=== PATIENT | female | born 1950 | race Caucasian/White ===

== ENCOUNTER 2016-10-13 12:03 | Emergency (ER) | payer OTHER ==
[~2016-10-13] VITALS: Ht 172.7 cm; Wt 115.1 kg
[~2016-10-13 12:03] MED LIST: AMR2 PO; ASPI81TA21 PO; GABA-113 PO; GLCSR500 PO; IBUP600T44 PO; LSN/20125 PO; MULT-506 PO; PARO20TA PO; cranberry supplement PO
[2016-10-13 12:16] VITALS: TEMP 36.9; Ht 172.7 cm; Wt 115.1 kg
[2016-10-13] MEDS ORDERED: CHOL1TAB42 PO (12:27)
[2016-10-13] MEDS ORDERED: METF1TAB53 PO (12:27)
[2016-10-13] MEDS ORDERED: [UNRECOGNIZED DRUG - OTHER] PO (12:27)
[2016-10-13] MEDS ORDERED: GLIM4TAB2 PO (12:27)
[2016-10-13] MEDS ORDERED: PREG150C PO (12:27)
[2016-10-13] MEDS ORDERED: OXYCODONE HCL IR 5 MG TAB (IMMEDIATE RELEASE) PO STA (12:45)
[2016-10-13] MEDS ORDERED: AMPICILLIN/SULBACTAM SOD INJ 3,000 MG in SODIUM CHLORIDE 0.9% 100ML 100 ML IV STA (12:45)
[2016-10-13 13:35] LABS: BASO % 0.3 %; BASO ABS # 0.04 K/uL (0-0.2); COMPLETE YES; EOS % 0.4 %; HEMATOCRIT 43.1 % (37-47); IG% 0.3 %; LYMPH % 15.9 %; LYMPH ABS # 1.95 K/uL (1.2-3.4); MEAN CELL VOLUME 87.1 fL (80-100); MEAN CORPUSCULAR HEMOGLOBIN 29.9 pg (25-34); MEAN CORPUSCULAR HGB CONC 34.3 g/dl (32-36); MEAN PLATELET VOLUME 10.1 fL (7.4-10.4); MONO % 5.7 %; NEUT % 77.4 %; PLATELET COUNT 221 K/uL (130-400); RED BLOOD COUNT 4.95 M/uL (4.2-5.4); WHITE BLOOD COUNT 12.26 K/uL (4.8-10.8)
[2016-10-13 13:56] LABS: BUN/CREATININE RATIO 17.1 (10-20); CALCIUM 9.2 mg/dl (8.5-10.1); CREATININE 0.87 mg/dl (0.60-1.20); POTASSIUM 3.8 mmol/L (3.5-5.1)
--- NOTE | 2016-10-13 14:28 | EMERGENCY ROOM VISIT NOTE ---
History First contact with patient: 12:35 Chief Complaint: DENTAL PAIN Stated Complaint: TOOTH ABSCESS, PAIN/SWELLING Nursing Triage Summary: Red and swollen left cheek. She relates that she broke a tooth off on Wednesday. She relates pain in the face. History of Present Illness The patient is a 66 year old female who presents to the Emergency Room via private vehicle accompanied by son with complaints of "tooth abscess, pain/ swelling". Patient states that she's had trouble with her upper dentition for the past 2 weeks. She states that she has a plate on the top that was unable to fit correctly and then the tissue became irritated. She states over the weekend she was eating supper and a piece of her right front tooth broke off. Since then she's been experiencing worsening pain and swelling on the right side of her face with redness from the right lip to the right eye. She rates the pain as an 8/10. She denies any pain with eye movement. She denies any kidney problems, fevers, chills, allergies, trouble swallowing. Review of Systems A complete 6-point Review of Systems was discussed with the patient, with pertinent positives and negatives listed in the History of Present Illness. All remaining Review of Systems questions can be considered negative unless otherwise specified. Past Medical/Surgical History No pertinent past medical history. Social History Smoking Status: Never Smoker Alcohol Use: none Drug Use: none Marital Status: Occupation Status: employed Current/Historical Medications Scheduled Amoxicillin & Pot Clavulanate (Augmentin 875-125 mg), 1 TAB PO BID Artificial Saliva (Biotene Dry Mouth Gum), 1 TAB PO DAILY Aspirin Enteric Coated (Ecotrin Or Generic), 81 MG PO DAILY Cholecalciferol (Vitamin D), 10,000 UNITS PO DAILY Glimepiride (Glimepiride), 4 MG PO DAILY Hctz/Lisinopril (PRINZIDE 20/12.5 Mg), 1 TAB PO DAILY Metformin Hcl (Glucophage Ext Rel), 1,000 MG PO BID Multivitamin (Multivitamin), 1 TAB PO DAILY Pregabalin (Lyrica), 150 MG PO BID [cranberry supplement], 1 TABS PO BID Scheduled PRN Oxycodone Ir (Roxicodone Ir), 1-2 TAB PO Q4H PRN for Pain Allergies Coded Allergies: NUTS (Verified Allergy, Unknown, ., 10/13/16) Physical Exam Vital Signs Date Time Temp Pulse Resp B/P Pulse Ox O2 Delivery O2 Flow Rate FiO2 10/13/16 16:53 102 18 125/79 93 Room Air 10/13/16 14:59 81 20 135/80 91 Room Air 10/13/16 12:16 36.9 97 18 141/87 93 Room Air Physical Exam VITAL SIGNS - Vital signs and nursing notes were reviewed. Patient is afebrile , blood pressure 141/87, non-tachycardic and is saturating on room air at 93%. She was noted to be this low on a previous visit in 2012 for similar complaint. GENERAL -66-year-old female appearing her stated age who is in no acute distress. Communicates well with provider and answers questions appropriately. SKIN - there is erythema extending from the right upper lip to the right eye. There is edema of this region. There is periorbital edema and erythema. No pain with EOMs. There is tenderness palpation just to the right of the right nostril. HEAD - NC/AT. EYES - PERRL with EOMI bilaterally. Sclera anicteric. Palpebral conjunctiva pink and moist with no injection noted. EARS - No deformities of external structures noted on gross examination bilaterally. No pain elicited with palpation of the tragus bilaterally. External auditory canals without discharge or otorrhea. Tympanic membranes pearly laguna without retraction or bulging. No fluid or purulent material visualized behind the TM. Handle of malleus, umbo, cone of light, pars tensa/ flaccid all easily visualized. NOSE - Midline and without cyanosis. No epistaxis or purulent drainage noted. MOUTH/OROPHARYNX - Without perioral cyanosis. Buccal mucosa pink and moist and without leukoplakia. Tongue midline with equal elevation of palate bilaterally. No tonsillar hypertrophy, erythema, or exudates noted. Poor dentition noted. There is evidence of a fractured tooth in the right front portion of the upper dentition. Multiple missing teeth. NECK - Neck with FROM. Supple to palpation. No lymphadenopathy noted. No nuchal rigidity. No signs of Tony angina. LUNGS - Chest wall symmetric without accessory muscle use, intercostals retractions, or central cyanosis. Normal vesicular breath sounds CTA B/L. No wheezes, rales, or rhonchi appreciated. CARDIAC - RRR with S1/S2. No murmur, rubs, or gallops appreciated. Medical Decision & Procedures ER Provider Diagnostic Interpretation: MAXILLOFACIAL CT WITH CONTRAST CLINICAL HISTORY: Right facial edema, erythema from mouth to right eye. TECHNIQUE: Axial images of the face were obtained following intravenous injection of 119 cc Optiray 320 IV. Sagittal and coronal reconstructions were viewed. COMPARISON STUDY: Neck CT December 24, 2011. FINDINGS: Visualized portions of the intracranial contents are unremarkable. The epiglottis is normal. Parotid and submandibular glands are normal. There is moderate plaque within the major vessels of the upper neck and skull base. These vessels are patent. No suspicious osseous lesion is present. There are multiple dental amalgams with streak artifact. There are multiple absent teeth as well as cavities. Note is made of a rim-enhancing 1.7 x 1.5 x 0.8 cm fluid collection overlying the right anterior aspect of the maxilla. This is due to a periapical abscess of a right maxillary tooth shown on axial image 298 of 610. Exact numbering is difficult given numerous absent teeth. This is either the lateral right maxillary incisor or less likely the canine. No additional abscesses are identified. There is adjacent infiltration consistent with cellulitis. There is mild right preseptal cellulitis as well. IMPRESSION: 1.7 x 1.5 x 0.8 cm abscess overlying the right anterior aspect of the maxilla with associated cellulitis. This represents an odontogenic abscess related to a periapical abscess of a anterior right maxillary tooth. Exact numbering is difficult given absent teeth although this is likely related to the lateral right maxillary incisor or less likely the canine. Electronically signed by: Rogelio Ayoub M.D. 10/13/2016 2:46 PM Dictated Date/Time: 10/13/2016 2:38 PM Laboratory Results 10/13/16 13:05 Red Blood Count 4.95, Mean Corpuscular Volume 87.1, Mean Corpuscular Hemoglobin 29.9, Mean Corpuscular Hemoglobin Concent 34.3, Mean Platelet Volume 10.1, Neutrophils (%) (Auto) 77.4, Lymphocytes (%) (Auto) 15.9, Monocytes (%) (Auto) 5.7, Eosinophils (%) (Auto) 0.4, Basophils (%) (Auto) 0.3, Neutrophils # (Auto) 9.48, Lymphocytes # (Auto) 1.95, Monocytes # (Auto) 0.70, Eosinophils # (Auto) 0.05, Basophils # (Auto) 0.04 10/13/16 13:05 Test 10/13/16 13:05 White Blood Count 12.26 K/uL (4.8-10.8) Red Blood Count 4.95 M/uL (4.2-5.4) Hemoglobin 14.8 g/dL (12.0-16.0) Hematocrit 43.1 % (37-47) Mean Corpuscular Volume 87.1 fL (80-100) Mean Corpuscular Hemoglobin 29.9 pg (25-34) Mean Corpuscular Hemoglobin Concent 34.3 g/dl (32-36) Platelet Count 221 K/uL (130-400) Mean Platelet Volume 10.1 fL (7.4-10.4) Neutrophils (%) (Auto) 77.4 % Lymphocytes (%) (Auto) 15.9 % Monocytes (%) (Auto) 5.7 % Eosinophils (%) (Auto) 0.4 % Basophils (%) (Auto) 0.3 % Neutrophils # (Auto) 9.48 K/uL (1.4-6.5) Lymphocytes # (Auto) 1.95 K/uL (1.2-3.4) Monocytes # (Auto) 0.70 K/uL (0.11-0.59) Eosinophils # (Auto) 0.05 K/uL (0-0.5) Basophils # (Auto) 0.04 K/uL (0-0.2) RDW Standard Deviation 44.1 fL (36.4-46.3) RDW Coefficient of Variation 13.7 % (11.5-14.5) Immature Granulocyte % (Auto) 0.3 % Immature Granulocyte # (Auto) 0.04 K/uL (0.00-0.02) Anion Gap 8.0 mmol/L (3-11) Est Creatinine Clear Calc Drug Dose 87.0 ml/min Estimated GFR () 81.6 Estimated GFR (Non- 70.4 BUN/Creatinine Ratio 17.1 (10-20) Calcium Level 9.2 mg/dl (8.5-10.1) Medications Administered Medications (Trade) Dose Ordered Sig/Hebert Route Start Time Stop Time Status Last Admin Dose Admin Ampicillin Sodium/ Sulbactam Sodium/ Sodium Chloride (Unasyn Inj/Nss 100ml) 108 ml @ 200 mls/hr NOW STAT IV 10/13/16 12:45 10/13/16 13:17 DC 10/13/16 13:13 200 MLS/HR Oxycodone HCl (Roxicodone Immediate Rel Tab) 5 mg NOW STAT PO 10/13/16 12:45 10/13/16 12:48 DC 10/13/16 12:45 5 MG Lidocaine HCl (Buffered Lidocaine 1% Inj) 20 ml ONE STAT INFIL 10/13/16 15:23 10/13/16 15:25 DC 10/13/16 15:23 20 ML Dexamethasone Sodium Phosphate (Decadron Inj) 10 mg NOW STAT IV 10/13/16 15:24 10/13/16 15:25 DC 10/13/16 15:45 10 MG Medical Decision Patient was seen and evaluated as above. After obtaining a thorough history and physical examination IV access was obtained and a CBC, PRP, 3 g of Unasyn and one 5 mg tablet of oxycodone were given secondary to subjective and objective examination findings. CT of the face with IV contrast was also obtained secondary to facial swelling and concern for swelling around the eye. No pain with EOMs. There is concern for preseptal cellulitis and facial abscess secondary to poor dentition. CT results as above. There is an abscess. Case was discussed with my attending and it was decided to call the on -call oral maxillary facial surgeon. Case was discussed with Dr. Garg by my attending. He agreed to come in and evaluate the patient and drained the abscess. 1% buffered lidocaine was ordered and a suture setup was also ordered. I was instructed to provide the patient with 10 mg of Decadron as per instruction from Dr. Garg relayed to my attending. I do believe this is reasonable. Dr. Garg then came and drained the abscess with good result. She was placed upon Augmentin 875 mg 1 tab by mouth daily for 10 days. She is to call his office first thing tomorrow to schedule follow-up. She was given a short term supply of pain medication and instructed upon use. She was educated upon worrisome symptoms in which to return. She was informed upon the plaque findings in the neck vasculature and had vasculature. She was given a copy of her CT report and instructed to follow-up with her family doctor regarding these findings. She was educated upon today's findings, had questions answered prior to discharge, and was discharged home in good condition. I do believe the patient is stable for discharge and can be managed in the outpatient setting with close follow-up with Dr. Garg. She is to return with any new/ concerning symptoms or worsening of her symptoms. CBC revealed slight leukocytosis of 12.26. CMP revealed random glucose of 222. Patient is a known diabetic. In evaluation treatment this patient following differential diagnoses were entertained: Facial abscess, cellulitis, para will cellulitis, preseptal cellulitis, among others. [place] Drug Monitoring Program Search Results: patient reviewed within database, no issues identified Impression Primary Impression: Cellulitis and abscess of face Additional Impression: Preseptal cellulitis of right eye Departure Information Dispostion Home / Self-Care Condition GOOD Prescriptions Oxycodone Ir (Roxicodone Ir) 5 Mg Tab 1-2 TAB PO Q4H Y for Pain, #15 TAB For Initial Treatment Prov: Tony Albarran PA-C 10/13/16 Amoxicillin & Pot Clavulanate (Augmentin 875-125 mg) 1 Tab Tab 1 TAB PO BID for 10 Days, #20 TAB Prov: Tony Albarran PA-C 10/13/16 Referrals Carol Ayoub M.D. (PCP) Markos Garg DMD, MD, FACS Patient Instructions My [facility] Additional Instructions You have been treated in the Emergency Department for Dental Pain. You have received pain medicine in the emergency department which impairs your ability to operate a vehicle. It is illegal for you to drive after receiving these medicines. You have been prescribed Oxy IR to be used for pain control. This is a narcotic medication. You cannot drive or consume alcohol while on this medicine. This medicine should only be used for pain that cannot be controlled with over-the- counter pain medicines. You were prescribed Augmentin to be taken Twice daily. This is an antibiotic. All antibiotics have the potential to cause diarrhea. Stop this medication and contact a medical provider if you were to develop any significant adverse side effects including: wheezing, shortness of breath, passing out, vomiting, or a diffuse rash. Always take antibiotics as directed and COMPLETE the ENTIRE course regardless of the improvement of your symptoms. For pain control, you can use the following [id number] medicines (if >12 yo): - Regular strength (325mg/tab) Tylenol (acetaminophen) 2 tabs every 4-6 hours as needed. Do not exceed 12 tablets in a 24 hour period. Avoid taking more than 4 grams (4000 mg) of Tylenol per day. This includes any other sources of acetaminophen you may take on a regular basis. - Regular strength (200 mg/tab) Advil (ibuprofen) 1-2 tabs every 4-6 hours as needed. Do not exceed a dose of 3200 mg per day. Refrain from smoking cigarettes or using chewing tobacco until you have been evaluated by your dentist. Keeping beverages lukewarm and consuming soft foods can decrease your pain. Warm compresses over the affected area may offer some relief. Please call Dr. Garg's office first thing tomorrow morning to schedule follow- up regarding your emergency department visit. Please call your family doctor regarding today's visit. For the plaque that was noted in the major vessels of the neck and skull base. Please return to the emergency department with any new/concerning symptoms. Return to the emergency department if you develop the following symptoms despite treatment course outlined above: fever, intractable pain, increased redness, swelling, or purulent discharge. Problem Qualifiers
--- NOTE | 2016-10-13 14:48 | DIAGNOSTIC IMAGING REPORT ---
MAXILLOFACIAL CT WITH CONTRAST CLINICAL HISTORY: Right facial edema, erythema from mouth to right eye. TECHNIQUE: Axial images of the face were obtained following intravenous injection of 119 cc Optiray 320 IV. Sagittal and coronal reconstructions were viewed. COMPARISON STUDY: Neck CT December 24, 2011. FINDINGS: Visualized portions of the intracranial contents are unremarkable. The epiglottis is normal. Parotid and submandibular glands are normal. There is moderate plaque within the major vessels of the upper neck and skull base. These vessels are patent. No suspicious osseous lesion is present. There are multiple dental amalgams with streak artifact. There are multiple absent teeth as well as cavities. Note is made of a rim-enhancing 1.7 x 1.5 x 0.8 cm fluid collection overlying the right anterior aspect of the maxilla. This is due to a periapical abscess of a right maxillary tooth shown on axial image 298 of 610. Exact numbering is difficult given numerous absent teeth. This is either the lateral right maxillary incisor or less likely the canine. No additional abscesses are identified. There is adjacent infiltration consistent with cellulitis. There is mild right preseptal cellulitis as well. IMPRESSION: 1.7 x 1.5 x 0.8 cm abscess overlying the right anterior aspect of the maxilla with associated cellulitis. This represents an odontogenic abscess related to a periapical abscess of a anterior right maxillary tooth. Exact numbering is difficult given absent teeth although this is likely related to the lateral right maxillary incisor or less likely the canine. Electronically signed by: Rogelio Ayoub M.D. 10/13/2016 2:46 PM Dictated Date/Time: 10/13/2016 2:38 PM
[2016-10-13] MEDS ORDERED: XYLOCAINE 1%/SOD BICARB 20 ML VIAL INFIL STA (15:23)
[2016-10-13] MEDS ORDERED: DEXAMETHASONE SOD INJ 10 MG/ML VIAL IV STA (15:24)
[2016-10-13] MEDS ORDERED: AMOX875T PO (16:41)
[2016-10-13] MEDS ORDERED: OXYC1TAB3 PO (16:42)
[2016-10-13 16:53] VITALS: BP 125/79; PULSE 102; O2SAT 93
--- NOTE | 2016-10-14 20:39 | EMERGENCY ROOM VISIT NOTE ---
ED Visit Note First contact with patient: 12:35 I have personally seen and evaluated the patient with the PA. I agree with the diagnosis and management decisions and have been personally involved in the case. She had been treated with 3 g of IV Unasyn. I did discuss the findings with Dr. Garg of oral surgery. He did evaluate the patient in the emergency department. She was 10 mg of IV Decadron per Dr. Garg's request. Patient was discharged on a course of Augmentin. He will evaluate the patient in the office later in the week. Please see Tony Albarran PA-C's notes for further details of the history, physical and visit.
== END 2016-10-13 16:54 | disposition home or self-care (01) ==
LOC: C.EDB 12:09 → C.EDD 16:54
DX: L03.211 Cellulitis of face (principal); L03.213 Periorbital cellulitis

== ENCOUNTER → 2016-11-20 | Outpatient (CLI) | payer OTHER ==
[~2016-11-20] MED LIST changes: -AMR2 PO; +CHOL1TAB42 PO; +CRAN1CAP15 PO; +EFF75 PO; -GABA-113 PO; -GLCSR500 PO; +GLIM4TAB2 PO; -IBUP600T44 PO; +MELATAB2 PO; +MELO7.5T5 PO; +METF1TAB53 PO; +OXYC1TAB3 PO; -PARO20TA PO; +PREG150C PO; +[UNRECOGNIZED DRUG - OTHER] PO
--- NOTE | 2016-11-20 16:35 | MAMMOGRAPHY REPORT ---
BILATERAL DIGITAL SCREENING MAMMOGRAM WITH CAD: 11/20/2016 CLINICAL HISTORY: Routine screening. Patient has no complaints. TECHNIQUE: Current study was also evaluated with a Computer Aided Detection (CAD) system. Bilatera l CC and MLO views were obtained. COMPARISON: Comparison is made to exams dated: 11/07/2015 mammogram, 07/28/2013 mammogram, 07/22/2012 mammogram, 07/21/2011 mammogram, and 07/18/2010 mammogram - [facility]. BREAST COMPOSITION: There are scattered areas of fibroglandular density in both breasts. FINDINGS: No suspicious masses, calcifications, or areas of architectural distortion are noted in e ither breast. There has been no significant interval change compared to prior exams. Scattered bilat eral benign-appearing calcifications are not significantly changed. IMPRESSION: ACR BI-RADS CATEGORY 2: BENIGN There is no mammographic evidence of malignancy. A 1 year screening mammogram is recommended. The p atient will receive written notification of the results. Approximately 10% of breast cancers are not detected with mammography. A negative mammographic repor t should not delay biopsy if a clinically suggestive mass is present. Martina Acharya M.D. ah/:11/20/2016 15:35:45 Taproom Attendant: Giovanna NAVA(Ginger)(M), [facility] letter sent: Normal 1/2 BI-RADS Code: ACR BI-RADS Category 2: Benign
== END | disposition home or self-care (01) ==
LOC: C.MAMM 13:52
PROVIDERS: ATTEND Internal Medicine
DX: Z12.31 Encounter for screening mammogram for malignant neoplasm of breast (principal)

== ENCOUNTER → 2017-01-01 | Outpatient (CLI) | payer OTHER ==
[~2017-01-01] MED LIST changes: +CEPH500C PO; +CHOL20009 PO; +CRAN1TAB3 PO; +GLC500 PO; +SULF800T23 PO
[2017-01-01 12:11] LABS: ESTIMATED AVERAGE GLUCOSE 186 mg/dl; HA1C FLAG Normal (Normal)
[2017-01-01 12:32] LABS: ALT/SGPT 32 U/L (12-78); AST/SGOT 20 U/L (15-37); BLOOD UREA NITROGEN 22 mg/dl (7-18); BUN/CREATININE RATIO 24.3 (10-20); CALCIUM 9.6 mg/dl (8.5-10.1); CARBON DIOXIDE 29 mmol/L (21-32); CHLORIDE 104 mmol/L (98-107); CHOLESTEROL 233 mg/dl (0-200); CREATININE 0.92 mg/dl (0.60-1.20); GLUCOSE 158 mg/dl (70-99); POTASSIUM 3.9 mmol/L (3.5-5.1); SODIUM 140 mmol/L (136-145)
[2017-01-01 12:40] LABS: ALKALINE PHOSPHATASE 111 U/L (45-117); CHOLESTEROL/HDL RATIO 4.1; HDL CHOLESTEROL 57 mg/dl; LDL CHOLESTEROL CALCULATED 152 mg/dl; TRIGLYCERIDES 122 mg/dl (0-150); VERY LOW DENSITY LIPOPROT CALC 24 mg/dl
[2017-01-04 17:56] LABS: ALBUMIN 4.2 G/DL (3.8-4.8); GAMMA GLOBULIN 1.1 G/DL (0.8-1.7); IMMUNOFIXATION IGA SERUM 285 MG/DL (81-463); IMMUNOFIXATION IGG SERUM 1124 MG/DL (694-1618); IMMUNOFIXATION IGM SERUM 36 MG/DL (48-271)
== END | disposition home or self-care (01) ==
LOC: C.LABBFT 08:39
PROVIDERS: ATTEND Internal Medicine
DX: Z00.00 Encounter for general adult medical examination without abnormal findings (principal); E11.42 Type 2 diabetes mellitus with diabetic polyneuropathy; R41.3 Other amnesia; E78.5 Hyperlipidemia, unspecified; M19.90 Unspecified osteoarthritis, unspecified site; I10 Essential (primary) hypertension; E66.9 Obesity, unspecified

== ENCOUNTER 2017-01-11 13:08 | Emergency (ER) | payer OTHER ==
[~2017-01-11] VITALS: Ht 170.2 cm; Wt 115.0 kg
[~2017-01-11 13:08] MED LIST changes: -CEPH500C PO; -CHOL20009 PO; -CRAN1CAP15 PO; -CRAN1TAB3 PO; -EFF75 PO; -GLC500 PO; -MELATAB2 PO; -MELO7.5T5 PO; -SULF800T23 PO
[2017-01-11 13:10] VITALS: TEMP 36.5; Ht 170.2 cm; Wt 115.0 kg
[2017-01-11] MEDS ORDERED: SODIUM CHLORIDE 0.9% 1000ML 1,000 ML IV SCH (13:28)
[2017-01-11 13:34] VITALS: O2SAT 96
[2017-01-11 13:54] LABS: BASO % 1.1 %; BASO ABS # 0.08 K/uL (0-0.2); COMPLETE YES; EOS % 1.7 %; HEMATOCRIT 48.1 % (37-47); IG% 0.3 %; LYMPH % 23.1 %; LYMPH ABS # 1.65 K/uL (1.2-3.4); MEAN CELL VOLUME 87.3 fL (80-100); MEAN CORPUSCULAR HEMOGLOBIN 28.9 pg (25-34); MEAN CORPUSCULAR HGB CONC 33.1 g/dl (32-36); MEAN PLATELET VOLUME 10.2 fL (7.4-10.4); MONO % 9.2 %; NEUT % 64.6 %; PLATELET COUNT 219 K/uL (130-400); RED BLOOD COUNT 5.51 M/uL (4.2-5.4); WHITE BLOOD COUNT 7.14 K/uL (4.8-10.8)
[2017-01-11 14:01] LABS: PARTIAL THROMBOPLASTIN RATIO 1.1; PROTHROMBIN TIME (PATIENT) 10.3 SECONDS (9.0-12.0)
[2017-01-11 14:13] LABS: BLOOD UREA NITROGEN 19 mg/dl (7-18); BUN/CREATININE RATIO 19.9 (10-20); CARBON DIOXIDE 25 mmol/L (21-32); CHLORIDE 104 mmol/L (98-107); CREATININE 0.96 mg/dl (0.60-1.20); GLUCOSE 224 mg/dl (70-99); SODIUM 138 mmol/L (136-145)
[2017-01-11 14:15] LABS: CALCIUM 9.3 mg/dl (8.5-10.1)
[2017-01-11 14:18] LABS: CKMB/CK RATIO 3.1 (0-3.0)
--- NOTE | 2017-01-11 14:25 | DIAGNOSTIC IMAGING REPORT ---
CHEST ONE VIEW PORTABLE CLINICAL HISTORY: Stroke. COMPARISON STUDY: No previous studies for comparison. FINDINGS: A 7 mm nodular density within the right midlung likely reflects a calcified lung nodule or rib lesion. There are suspected calcified mediastinal lymph node nodes. The size of the heart is normal. There is no consolidation to suggest pneumonia. No pneumothorax or pleural effusion is present. IMPRESSION: 1. No acute cardiopulmonary findings. 2. Suspected 7 mm calcified right lung granuloma and calcified thoracic lymph nodes. This suggests a prior granulomatous process. Electronically signed by: Rogelio Ayoub M.D. 01/11/2017 2:24 PM Dictated Date/Time: 01/11/2017 2:22 PM
--- NOTE | 2017-01-11 14:29 | DIAGNOSTIC IMAGING REPORT ---
CT HEAD WITHOUT CONTRAST (CT) CLINICAL HISTORY: Stroke HEADACHE COMPARISON STUDY: No previous studies for comparison. TECHNIQUE: Axial CT of the brain is performed from the vertex to the skull base. IV contrast was not administered for this examination. CT DOSE: 823.94 mGycm FINDINGS: No intra or extra-axial mass lesions are visualized. There is no CT evidence of acute cortical infarction. There is no evidence of midline shift. There is no acute hemorrhage. No calvarial fractures are visualized. There are patchy minimal matter hypodensities likely on a small vessel basis. There is no evidence of pathologic ventricular dilatation. There is no evidence of acute sinusitis IMPRESSION: No acute intracranial findings Electronically signed by: Jett Cameron M.D. 01/11/2017 2:28 PM Dictated Date/Time: 01/11/2017 2:27 PM
[2017-01-11] MEDS ORDERED: CRAN1CAP15 PO (14:37)
[2017-01-11] MEDS ORDERED: MELO7.5T5 PO (14:37)
[2017-01-11] MEDS ORDERED: MELATAB2 PO (14:38)
[2017-01-11] MEDS ORDERED: LORAZEPAM 2 MG/ML 1 ML VIAL IV STA (15:18)
[2017-01-11 15:25] LABS: URINE APPEARANCE CLEAR (CLEAR); URINE BILIRUBIN NEG (NEG); URINE COLOR YELLOW; URINE EPITHELIAL CELL AUTO 20-30 /lpf (0-5); URINE NITRITE NEG (NEG); URINE SPECIFIC GRAVITY 1.027 (1.000-1.030); UROBILINOGEN NEG (NEG); ZZUR CULT IF INDIC CLEAN CATCH NO
[2017-01-11 15:31] LABS: MANUAL MICROSCOPIC REQUIRED? NO; REVIEW REQ? NO
--- NOTE | 2017-01-11 16:20 | DIAGNOSTIC IMAGING REPORT ---
RIGHT FEMUR 2 VIEWS ROUTINE CLINICAL HISTORY: Pt c/o Rt leg weakness Right pain. Edema. COMPARISON: None. DISCUSSION: Moderate degenerative change right hip. Components of calcific trochanteric bursitis. Moderate osteophytic formation throughout. No well-defined fracture. There is no evidence for soft tissue swelling. IMPRESSION: Moderate to rather significant degenerative change. No acute bony abnormality. Electronically signed by: Emmett Rapp M.D. 01/11/2017 4:18 PM Dictated Date/Time: 01/11/2017 4:17 PM
--- NOTE | 2017-01-11 16:20 | DIAGNOSTIC IMAGING REPORT ---
PELVIS 1 OR 2 VIEW ROUTINE CLINICAL HISTORY: Pt c/o Rt hip pain pain COMPARISON: None. DISCUSSION: Generalized degenerative changes of the hips bilaterally. Calcific trochanteric bursitis. No evidence for acetabular protrusion. Moderate degenerative change sacroiliac joints. There is no evidence for soft tissue swelling. IMPRESSION: Degenerative change. No acute process. Electronically signed by: Emmett Rapp M.D. 01/11/2017 4:19 PM Dictated Date/Time: 01/11/2017 4:19 PM
[2017-01-11] MEDS ORDERED: EFF75 PO (16:57)
--- NOTE | 2017-01-11 17:22 | EMERGENCY ROOM VISIT NOTE ---
History Report prepared by Adelaide: Monico Velarde Under the Supervision of: Dr. Nik Joyce M.D. First contact with patient: 13:17 Chief Complaint: LEG PAIN,LEG INJURY Stated Complaint: LEG YAHIR,SEVERE CRAMPING History of Present Illness The patient is a 66 year old female who presents to the Emergency Room with complaints of constant right leg weakness beginning last night. She states that she has been unable to walk on her leg because it continues to give out on her. She also complains of bilateral feet numbness beginning two days ago. The patient has a history of diabetes and spinal stenosis. She denies any back pain , or arm weakness. Source of History: patient Onset: Last night Position: leg (right) Quality: other (weakness) Timing: constant Associated Symptoms: + numbness (bilateral feet), No back pain Note: The patient denies any arm weakness. Review of Systems See HPI for pertinent positives & negatives. A total of 10 systems reviewed and were otherwise negative. Past Medical & Surgical Medical Problems: (1) Diabetes (2) Spinal stenosis Family History No pertinent family history stated. Social History Smoking Status: Never Smoker Alcohol Use: none Drug Use: none Marital Status: Occupation Status: employed Current/Historical Medications Scheduled Artificial Saliva (Biotene Dry Mouth Gum), 1 TAB PO DAILY Aspirin Enteric Coated (Ecotrin Or Generic), 81 MG PO DAILY Cholecalciferol (Vitamin D), 10,000 UNITS PO DAILY Cranberry-Vitamin C-Vitamin E (Cranberry), 1 CAP PO DAILY Glimepiride (Glimepiride), 4 MG PO DAILY Hctz/Lisinopril (PRINZIDE 20/12.5 Mg), 1 TAB PO DAILY Melatonin (Melatonin Maximum Strengt), 1 TAB PO HS Meloxicam (Mobic), 7.5 MG PO DAILY Metformin Hcl (Glucophage Ext Rel), 500 MG PO BID Multivitamin (Multivitamin), 1 TAB PO DAILY Pregabalin (Lyrica), 150 MG PO BID Venlafaxine Hcl (Effexor), 75 MG PO DAILY Allergies Coded Allergies: NUTS (Verified Allergy, Unknown, ., 01/11/17) Physical Exam Vital Signs Date Time Temp Pulse Resp B/P Pulse Ox O2 Delivery O2 Flow Rate FiO2 01/11/17 19:26 90 18 145/89 93 5/8/17 18:14 94 18 132/98 98 Room Air 01/11/17 16:54 88 15 141/81 96 Room Air 01/11/17 15:30 86 16 149/88 01/11/17 14:47 85 20 127/69 94 Room Air 01/11/17 13:40 89 01/11/17 13:34 96 Room Air 01/11/17 13:10 36.5 84 18 139/76 95 Room Air Physical Exam GENERAL: Patient is a healthy-appearing well-nourished female HEAD: Normocephalic atraumatic EYES: Ocular movements intact pupils equal and react to light OROPHARYNX mucous membranes are moist no exudates present no erythema or edema present NECK: Supple no nuchal rigidity CHEST: Good equal expansion LUNGS: Clear and equal to auscultation CARDIAC: Normal S1 and S2 ABDOMEN: Soft nontender no guarding BACK: No CVA tenderness EXTREMITIES: No pain upon palpation normal muscle strength in all groups no clubbing cyanosis or edema; Pt able to lift leg off bed has 4/5 strength. NEURO: Patient is following commands is answering questions appropriately. Alert and oriented x3 Cranial Nerves 2-12 grossly intact Medical Decision & Procedures ER Provider Diagnostic Interpretation: X-ray results as stated below per interpretation by me and the radiologist. CT results as stated below per my review and radiologist interpretation: CT HEAD WITHOUT CONTRAST (CT) FINDINGS: No intra or extra-axial mass lesions are visualized. There is no CT evidence of acute cortical infarction. There is no evidence of midline shift. There is no acute hemorrhage. No calvarial fractures are visualized. There are patchy minimal matter hypodensities likely on a small vessel basis. There is no evidence of pathologic ventricular dilatation. There is no evidence of acute sinusitis IMPRESSION: No acute intracranial findings Electronically signed by: Jett Cameron M.D. CHEST ONE VIEW PORTABLE FINDINGS: A 7 mm nodular density within the right midlung likely reflects a calcified lung nodule or rib lesion. There are suspected calcified mediastinal lymph node nodes. The size of the heart is normal. There is no consolidation to suggest pneumonia. No pneumothorax or pleural effusion is present. IMPRESSION: 1. No acute cardiopulmonary findings. 2. Suspected 7 mm calcified right lung granuloma and calcified thoracic lymph nodes. This suggests a prior granulomatous process. Electronically signed by: Rogelio Ayoub M.D. PELVIS 1 OR 2 VIEW ROUTINE DISCUSSION: Generalized degenerative changes of the hips bilaterally. Calcific trochanteric bursitis. No evidence for acetabular protrusion. Moderate degenerative change sacroiliac joints. There is no evidence for soft tissue swelling. IMPRESSION: Degenerative change. No acute process. Electronically signed by: Emmett Rapp M.D. RIGHT FEMUR 2 VIEWS ROUTINE DISCUSSION: Moderate degenerative change right hip. Components of calcific trochanteric bursitis. Moderate osteophytic formation throughout. No well-defined fracture. There is no evidence for soft tissue swelling. IMPRESSION: Moderate to rather significant degenerative change. No acute bony abnormality. Electronically signed by: Emmett Rapp M.D. Laboratory Results 01/11/17 13:42 Red Blood Count 5.51, Mean Corpuscular Volume 87.3, Mean Corpuscular Hemoglobin 28.9, Mean Corpuscular Hemoglobin Concent 33.1, Mean Platelet Volume 10.2, Neutrophils (%) (Auto) 64.6, Lymphocytes (%) (Auto) 23.1, Monocytes (%) (Auto) 9.2, Eosinophils (%) (Auto) 1.7, Basophils (%) (Auto) 1.1, Neutrophils # (Auto) 4.61, Lymphocytes # (Auto) 1.65, Monocytes # (Auto) 0.66, Eosinophils # (Auto) 0.12, Basophils # (Auto) 0.08 01/11/17 13:42 Test 01/11/17 13:35 01/11/17 13:36 01/11/17 13:42 01/11/17 15:10 Bedside Glucose 242 mg/dl (70-90) Bedside Prothrombin Time INR 1.0 (0.9-1.1) White Blood Count 7.14 K/uL (4.8-10.8) Red Blood Count 5.51 M/uL (4.2-5.4) Hemoglobin 15.9 g/dL (12.0-16.0) Hematocrit 48.1 % (37-47) Mean Corpuscular Volume 87.3 fL (80-100) Mean Corpuscular Hemoglobin 28.9 pg (25-34) Mean Corpuscular Hemoglobin Concent 33.1 g/dl (32-36) Platelet Count 219 K/uL (130-400) Mean Platelet Volume 10.2 fL (7.4-10.4) Neutrophils (%) (Auto) 64.6 % Lymphocytes (%) (Auto) 23.1 % Monocytes (%) (Auto) 9.2 % Eosinophils (%) (Auto) 1.7 % Basophils (%) (Auto) 1.1 % Neutrophils # (Auto) 4.61 K/uL (1.4-6.5) Lymphocytes # (Auto) 1.65 K/uL (1.2-3.4) Monocytes # (Auto) 0.66 K/uL (0.11-0.59) Eosinophils # (Auto) 0.12 K/uL (0-0.5) Basophils # (Auto) 0.08 K/uL (0-0.2) RDW Standard Deviation 43.2 fL (36.4-46.3) RDW Coefficient of Variation 13.5 % (11.5-14.5) Immature Granulocyte % (Auto) 0.3 % Immature Granulocyte # (Auto) 0.02 K/uL (0.00-0.02) Prothrombin Time 10.3 SECONDS (9.0-12.0) Prothromb Time International Ratio 1.0 (0.9-1.1) Activated Partial Thromboplast Time 29.8 SECONDS (21.0-31.0) Partial Thromboplastin Ratio 1.1 Anion Gap 9.0 mmol/L (3-11) Est Creatinine Clear Calc Drug Dose 77.5 ml/min Estimated GFR () 72.4 Estimated GFR (Non- 62.5 BUN/Creatinine Ratio 19.9 (10-20) Calcium Level 9.3 mg/dl (8.5-10.1) Total Creatine Kinase 161 U/L (26-192) Creatine Kinase MB 5.0 ng/ml (0.5-3.6) Creatine Kinase MB Ratio 3.1 (0-3.0) Troponin I < 0.015 ng/ml (0-0.045) Urine Color YELLOW Urine Appearance CLEAR (CLEAR) Urine pH 5.0 (4.5-7.5) Urine Specific [place] 1.027 (1.000-1.030) Urine Protein NEG (NEG) Urine Glucose (UA) 2+ (NEG) Urine Ketones NEG (NEG) Urine Occult Blood NEG (NEG) Urine Nitrite NEG (NEG) Urine Bilirubin NEG (NEG) Urine Urobilinogen NEG (NEG) Urine Leukocyte Esterase TRACE (NEG) Urine WBC (Auto) 1-5 /hpf (0-5) Urine RBC (Auto) 0-4 /hpf (0-4) Urine Hyaline Casts (Auto) 1-5 /lpf (0-5) Urine Epithelial Cells (Auto) 20-30 /lpf (0-5) Urine Bacteria (Auto) NEG (NEG) Labs reviewed by ED physician. Medications Administered Medications (Trade) Dose Ordered Sig/Hebert Route Start Time Stop Time Status Last Admin Dose Admin Lorazepam (Ativan Inj) 1 mg NOW STAT IV 01/11/17 15:18 01/11/17 15:19 DC 01/11/17 17:11 1 MG ECG Indication: other (leg pain) Rate (beats per minute): 85 Rhythm: normal sinus Findings: no acute ischemic change, no ectopy ED Course 1318: Past medical records reviewed. The patient was evaluated in room A2. A complete history and physical examination was performed. 1328: Ordered Sodium Chloride 1000 ml @ 50 mls/hr, Ativan Inj 1 mg IV. 1642: I reassessed the patient. She is resting comfortably. Medical Decision Differential diagnosis: Etiologies such as metabolic, infection, hypo/hyperglycemia, electrolyte abnormalities, cardiac sources, intracerebral event, toxicologic, neurologic, as well as others were entertained. This is a 66-year-old female who presents emergency department complaining of right leg weakness. Patient reports she is unable to walk on the leg without it collapsing which started suddenly yesterday. Due to the nature the patient' s complaint she was sent for CAT scan of the head to rule out a stroke. This did not show any acute infarct. As the symptoms have been ongoing for greater than 12 hours or expect it to show up on a CT of the head. The patient was also sent for x-rays of her pelvis and her leg these also did not show any acute fractures. The patient was then sent for an MRI of her lower back. This also did not show any acute fractures or dislocations. I do believe that the patient is well enough to be discharged home. I recommended she follow up with orthopedics. Patient was in agreement with treatment plan. Impression Primary Impression: Leg pain, right Scribe Attestation The scribe's documentation has been prepared under my direction and personally reviewed by me in its entirety. I confirm that the note above accurately reflects all work, treatment, procedures, and medical decision making performed by me. Departure Information Dispostion Home / Self-Care Referrals Carol Ayoub M.D. (PCP) Patient Instructions My [facility]
--- NOTE | 2017-01-11 18:15 | DIAGNOSTIC IMAGING REPORT ---
LUMBAR SPINE MRI HISTORY: Pain. Neuropathy. Pt c/o Rt leg weakness TECHNIQUE: Multiplanar multisequence MRI of the lumbar spine was performed without the use of contrast. COMPARISON: None. FINDINGS: For the purpose of the report the L5-S1 disc space will be located on axial image 27 of 30. Minimal degenerative disc change. Vertebral body signal characteristics are unremarkable. L1-L2: No significant central canal or neural foraminal narrowing. L2-L3: No significant central canal or neural foraminal narrowing. L3-L4: No significant central canal or neural foraminal narrowing. L4-L5: Mild broad-based bulging disc with moderate narrowing of the left neural foramina at L5-S1: No significant central canal or neural foraminal narrowing. IMPRESSION: 1. Left lateral bulging disc with narrowing of the left neural foramina at L4-L5. 2. Study is otherwise negative Electronically signed by: Emmett Rapp M.D. 01/11/2017 6:14 PM Dictated Date/Time: 01/11/2017 6:12 PM
--- NOTE | 2017-01-11 19:08 | DIAGNOSTIC IMAGING REPORT ---
Venous Doppler right leg RIGHT VENOUS DOPP LOWER EXT UNILAT CLINICAL HISTORY: Pt c/o RLE swelling Right pain. Edema. TECHNIQUE: Venous Doppler COMPARISON STUDY: None FINDINGS: Normal study IMPRESSION: Normal study Electronically signed by: Emmett Rapp M.D. 01/11/2017 7:07 PM Dictated Date/Time: 01/11/2017 7:06 PM
[2017-01-11 19:26] VITALS: BP 145/89; PULSE 90; O2SAT 93
== END 2017-01-11 19:27 | disposition home or self-care (01) ==
LOC: C.EDB 13:09 → C.EDA 19:27
DX: M79.604 Pain in right leg (principal); G57.91 Unspecified mononeuropathy of right lower limb; M16.11 Unilateral primary osteoarthritis, right hip; E11.65 Type 2 diabetes mellitus with hyperglycemia; M48.00 Spinal stenosis, site unspecified; Z79.899 Other long term (current) drug therapy

== ENCOUNTER → 2017-05-07 | Outpatient (CLI) | payer OTHER ==
[~2017-05-07] MED LIST changes: +CRAN1CAP15 PO; +EFF75 PO; +MELATAB2 PO; +MELO7.5T5 PO; -OXYC1TAB3 PO; -cranberry supplement PO
[2017-05-07 17:44] LABS: BLOOD UREA NITROGEN 19 mg/dl (7-18); CREATININE 0.82 mg/dl (0.60-1.20); GLUCOSE 191 mg/dl (70-99)
[2017-05-07 17:45] LABS: ALT/SGPT 25 U/L (12-78); AST/SGOT 15 U/L (15-37); BUN/CREATININE RATIO 22.9 (10-20); CALCIUM 8.9 mg/dl (8.5-10.1); CARBON DIOXIDE 32 mmol/L (21-32); CHLORIDE 102 mmol/L (98-107); CHOLESTEROL 188 mg/dl (0-200); POTASSIUM 4.1 mmol/L (3.5-5.1); SODIUM 137 mmol/L (136-145)
[2017-05-07 17:47] LABS: ALB/GLOB RATIO 1.1 (0.9-2); ALKALINE PHOSPHATASE 102 U/L (45-117); CHOLESTEROL/HDL RATIO 3.4; HDL CHOLESTEROL 56 mg/dl; LDL CHOLESTEROL CALCULATED 103 mg/dl; TRIGLYCERIDES 146 mg/dl (0-150); VERY LOW DENSITY LIPOPROT CALC 29 mg/dl
[2017-05-08 06:16] LABS: ESTIMATED AVERAGE GLUCOSE 194 mg/dl; HA1C FLAG Normal (Normal)
== END | disposition home or self-care (01) ==
LOC: C.LABBFT 11:36
PROVIDERS: ATTEND Internal Medicine
DX: Z00.00 Encounter for general adult medical examination without abnormal findings (principal); E11.9 Type 2 diabetes mellitus without complications; E78.5 Hyperlipidemia, unspecified; I10 Essential (primary) hypertension

== ENCOUNTER 2017-07-26 12:05 | Emergency (ER) | payer OTHER ==
[~2017-07-26] VITALS: Ht 170.2 cm; Wt 115.0 kg
[2017-07-26 12:30] VITALS: TEMP 36.5; Ht 170.2 cm; Wt 115.0 kg
--- NOTE | 2017-07-26 13:58 | DIAGNOSTIC IMAGING REPORT ---
R FOOT MIN 3 VIEWS ROUTINE CLINICAL HISTORY: diabetic ulcer/blister right foot x1 week COMPARISON: None. DISCUSSION: No acute fractures are visualized. There are mild degenerative changes. There are vascular calcifications present. No bony destructive changes are evident. There is calcaneal spurring. IMPRESSION: 1. Degenerative change 2. No conventional radiographic evidence of osteomyelitis. Electronically signed by: Jett Cameron M.D. 07/26/2017 1:56 PM Dictated Date/Time: 07/26/2017 1:55 PM
[2017-07-26 14:19] LABS: BASO % 0.6 %; BASO ABS # 0.07 K/uL (0-0.2); COMPLETE YES; EOS % 0.6 %; HEMATOCRIT 45.4 % (37-47); IG% 0.3 %; LYMPH % 13.5 %; LYMPH ABS # 1.58 K/uL (1.2-3.4); MEAN CELL VOLUME 88.5 fL (80-100); MEAN CORPUSCULAR HEMOGLOBIN 29.6 pg (25-34); MEAN CORPUSCULAR HGB CONC 33.5 g/dl (32-36); MEAN PLATELET VOLUME 9.7 fL (7.4-10.4); MONO % 7.1 %; NEUT % 77.9 %; PLATELET COUNT 191 K/uL (130-400); RED BLOOD COUNT 5.13 M/uL (4.2-5.4); WHITE BLOOD COUNT 11.74 K/uL (4.8-10.8)
[2017-07-26 14:32] LABS: CALCIUM 9.5 mg/dl (8.5-10.1); CREATININE 0.93 mg/dl (0.60-1.20); POTASSIUM 3.8 mmol/L (3.5-5.1)
[2017-07-26] MEDS ORDERED: SULFAMETHOXAZOLE/TRIMETHOPRIM DS 800/160MG TAB PO STA (14:39)
[2017-07-26] MEDS ORDERED: CEPHALEXIN MONOHYDRATE 250 MG CAP PO STA (14:39)
[2017-07-26] MEDS ORDERED: CEPH500C PO (14:43)
[2017-07-26] MEDS ORDERED: SULF800T23 PO (14:43)
--- NOTE | 2017-07-26 14:46 | EMERGENCY ROOM VISIT NOTE ---
History First contact with patient: 13:13 Chief Complaint: OTHER COMPLAINT Stated Complaint: SORE ON BOTTOM OF RT FOOT History of Present Illness The patient is a 66 year old female who presents to the Emergency Room with complaints of a sore on her right foot for the past week. The patient states approximately one week ago, she felt like she was walking on something. She states she let it go, and did not have the discomfort treated. The patient does report a history of diabetic neuropathy, does have decreased sensation in bilateral feet. She states she does not have her check her sugar, but she didn' t check it today in the waiting room and states it was 225. The patient denied any history of diabetic ulcers or wounds on her feet. She does not you the wound clinic regularly. The patient denies any fever or vomiting, but states she has been nauseated. She denies any chills, abdominal pain, chest pain, dyspnea, or drainage from the wound. The patient has not taken any medication for pain. She has not seen another provider regarding the wound. The patient' s stepdaughter is a registered nurse, and she states she evaluated the wound today and said it did not look good and the patient needed to see a provider regarding the infection. Review of Systems A complete 10 point review of systems was reviewed with the patient with pertinent positives and negatives as per history of present illness. All else were negative. Past Medical/Surgical History Medical Problems: (1) Diabetes (2) Spinal stenosis Social History Smoking Status: Never Smoker Alcohol Use: none Drug Use: none Marital Status: Occupation Status: employed Current/Historical Medications Scheduled Artificial Saliva (Biotene Dry Mouth Gum), 1 TAB PO DAILY Aspirin Enteric Coated (Ecotrin Or Generic), 81 MG PO DAILY Cephalexin Monohydrate (Keflex), 500 MG PO QID Cholecalciferol (Vitamin D), 2,000 UNITS PO DAILY Glimepiride (Glimepiride), 4 MG PO DAILY Hctz/Lisinopril (PRINZIDE 20/12.5 Mg), 1 TAB PO DAILY Melatonin (Melatonin Maximum Strengt), 1 TAB PO HS Meloxicam (Mobic), 7.5 MG PO DAILY Metformin HCl (Metformin HCl), 1,000 MG PO AMPM Multivitamin (Multivitamin), 1 TAB PO DAILY Pregabalin (Lyrica), 150 MG PO BID Sulfa/Trimethoprim (Bactrim Ds 800MG/160MG), 1 TAB PO BID Venlafaxine Hcl (Effexor), 75 MG PO DAILY Physical Exam Vital Signs Date Time Temp Pulse Resp B/P (MAP) Pulse Ox O2 Delivery O2 Flow Rate FiO2 07/26/17 14:55 90 18 135/86 95 Room Air 07/26/17 12:30 36.5 100 18 155/103 92 Room Air Physical Exam VITALS: Vitals are noted on the nurse's note and reviewed by myself. Vital signs stable. GENERAL: This is a 66-year-old obese white female, in no acute distress, nondiaphoretic, well-developed well-nourished. SKIN: There is a closed blister like wound on the plantar aspect of the right foot. This is in the center of the anterior aspect of the foot. The blister is full of fluid, and does appear black in color. The skin was otherwise without rashes, erythema, edema, or bruising. There is no tenting of the skin. Capillary reflex less than 2 seconds. HEAD: Normocephalic atraumatic. NECK: Supple without nuchal rigidity. No lymphadenopathy. No thyromegaly. Cervical spine is nontender. No JVD. HEART: Regular rate and rhythm without murmurs gallops or rubs. LUNGS: Clear to auscultation bilaterally without wheezes, rales or rhonchi. No dullness to percussion. No retractions or accessory muscle use. MUSCULOSKELETAL: No muscle atrophy, erythema, or edema noted. Full range of motion without joint tenderness in all extremities. No tenderness to palpation. Normal gait. Strength 5/5 throughout. NEURO: Patient was alert and oriented to person place and time. Normal sensation to light and sharp touch. Deep tendon reflexes 2+ throughout. No focal neurological deficits. Medical Decision & Procedures ER Provider Diagnostic Interpretation: CBC did show mildly elevated white blood cell count of 11,000. CBC was without anemia or thrombocytopenia. ER P showed normal renal function and electrolytes. R FOOT MIN 3 VIEWS ROUTINE CLINICAL HISTORY: diabetic ulcer/blister right foot x1 week COMPARISON: None. DISCUSSION: No acute fractures are visualized. There are mild degenerative changes. There are vascular calcifications present. No bony destructive changes are evident. There is calcaneal spurring. IMPRESSION: 1. Degenerative change 2. No conventional radiographic evidence of osteomyelitis. Electronically signed by: Jett Cameron M.D. 07/26/2017 1:56 PM Dictated Date/Time: 07/26/2017 1:55 PM Laboratory Results 07/26/17 14:00 Red Blood Count 5.13, Mean Corpuscular Volume 88.5, Mean Corpuscular Hemoglobin 29.6, Mean Corpuscular Hemoglobin Concent 33.5, Mean Platelet Volume 9.7, Neutrophils (%) (Auto) 77.9, Lymphocytes (%) (Auto) 13.5, Monocytes (%) (Auto) 7.1, Eosinophils (%) (Auto) 0.6, Basophils (%) (Auto) 0.6, Neutrophils # (Auto) 9.16, Lymphocytes # (Auto) 1.58, Monocytes # (Auto) 0.83, Eosinophils # (Auto) 0.07, Basophils # (Auto) 0.07 07/26/17 14:00 Test 07/26/17 14:00 White Blood Count 11.74 K/uL (4.8-10.8) Red Blood Count 5.13 M/uL (4.2-5.4) Hemoglobin 15.2 g/dL (12.0-16.0) Hematocrit 45.4 % (37-47) Mean Corpuscular Volume 88.5 fL (80-100) Mean Corpuscular Hemoglobin 29.6 pg (25-34) Mean Corpuscular Hemoglobin Concent 33.5 g/dl (32-36) Platelet Count 191 K/uL (130-400) Mean Platelet Volume 9.7 fL (7.4-10.4) Neutrophils (%) (Auto) 77.9 % Lymphocytes (%) (Auto) 13.5 % Monocytes (%) (Auto) 7.1 % Eosinophils (%) (Auto) 0.6 % Basophils (%) (Auto) 0.6 % Neutrophils # (Auto) 9.16 K/uL (1.4-6.5) Lymphocytes # (Auto) 1.58 K/uL (1.2-3.4) Monocytes # (Auto) 0.83 K/uL (0.11-0.59) Eosinophils # (Auto) 0.07 K/uL (0-0.5) Basophils # (Auto) 0.07 K/uL (0-0.2) RDW Standard Deviation 44.4 fL (36.4-46.3) RDW Coefficient of Variation 13.7 % (11.5-14.5) Immature Granulocyte % (Auto) 0.3 % Immature Granulocyte # (Auto) 0.03 K/uL (0.00-0.02) Anion Gap 10.0 mmol/L (3-11) Est Creatinine Clear Calc Drug Dose 80.0 ml/min Estimated GFR () 75.3 Estimated GFR (Non- 64.9 BUN/Creatinine Ratio 18.0 (10-20) Calcium Level 9.5 mg/dl (8.5-10.1) Medications Administered Medications (Trade) Dose Ordered Sig/Hebert Route Start Time Stop Time Status Last Admin Dose Admin Trimethoprim/ Sulfamethoxazole (Septra Ds 800/ 160MG Tab) 1 tab NOW STAT PO 07/26/17 14:39 07/26/17 14:41 DC 07/26/17 14:49 1 TAB Cephalexin Monohydrate (Keflex Cap) 500 mg NOW STAT PO 07/26/17 14:39 07/26/17 14:41 DC 07/26/17 14:49 500 MG Medical Decision The patient was seen and evaluated as above. This is a 66-year-old diabetic white obese female who presents today with a blister on her foot. Labs and imaging were overall unremarkable, however the patient did have a slightly elevated white blood cell count of 11,000. Verbal consent was obtained to perform drainage of the abscess. The wound was cleaned with iodine. Abscess was drained after inserting an 18-gauge needle to perform an opening. A culture of the abscess was obtained. A significant amount of purulent fluid was expressed with gentle pressure. At this time, after the purulent fluid was expressed, I did note a small, black, splinter- like foreign body in the center of the abscess. A small incision was made at the location of the splinter, and this was removed successfully with forceps. No foreign body was retained. The wound was cleansed with sterile saline. The wound was then dressed with bacitracin ointment and a bulky dressing. Discharge instructions were reviewed and I encouraged patient to follow up closely with her PCP and consult with the wound clinic. The patient was given her first dose of Bactrim and Keflex. She was discharged home in good condition. Differential diagnosis includes abscess, blister, diabetic ulcer, neuropathy, cellulitis, sepsis, foreign body, malignancy, and others Impression Primary Impression: Abscess of foot Additional Impressions: Diabetes Embedded wood splinter Departure Information Dispostion Home / Self-Care Condition GOOD Prescriptions Sulfa/Trimethoprim (Bactrim Ds 800MG/160MG) Tab 1 TAB PO BID for 10 Days, #20 TAB Prov: Kimberli Javed PA-C 07/26/17 Cephalexin Monohydrate (Keflex) 500 Mg Cap 500 MG PO QID for 10 Days, #40 CAP Prov: Kimberli Javed PA-C 07/26/17 Referrals Carol Ayoub M.D. (PCP) [facility] Patient Instructions ED Abscess IandD, ED Foot Care Diabetic, Foot Care Diabetes Steps, [facility] Additional Instructions You were seen in the emergency department today for a right foot abscess. This was successfully drained, and culture was obtained. Results of the culture will be available in 48-72 hours. There was a small splinter in the center of the abscess, which appears to be the cause of the abscess. As discussed, you should have somebody inspect your feet at least once weekly to ensure there are no foreign bodies or other abnormalities. You were prescribed Keflex and Bactrim to be taken as directed. This is an antibiotic. All antibiotics have the potential to cause diarrhea. Stop this medication and contact a medical provider if you were to develop any significant adverse side effects including: wheezing, shortness of breath, passing out, vomiting, or a diffuse rash. Always take antibiotics as directed and COMPLETE the ENTIRE course regardless of the improvement of your symptoms. Ibuprofen(Motrin, Advil) may be used for fever or pain. Use 600mg every six hours as needed. Take with food. Avoid using more than 2400mg in a 24 hour period. Do not use 2400mg per day for more than three consecutive days without physician direction. Prolonged inappropriate use can lead to stomach upset or ulcers. (AND/OR) Acetaminophen(Tylenol) may be used for fever or pain. Use 1000mg every six hours as needed. Avoid using more than 3000mg in a 24 hour period. Please keep the wound clean and dry. You may bathe and shower, remove the dressing, but when you are finished, you should dry the wound and redress that after the skin has dried. Use bacitracin ointment or and other OTC antibiotic ointment and gauze to keep a cushion dressing over the wound. Please follow up with the wound center in 2-3 days for recheck and further management of your foot care. Please follow up with your PCP in 1-2 days for recheck. Your PCP may be able to help get you an appointment with the wound center. Return to the emergency department for worsening fever, chills, nausea, vomiting , pain, redness, significant puslike drainage, or for other concerning symptoms. Problem Qualifiers Additional Impressions: Diabetes Diabetes mellitus type: type 2 Diabetes mellitus complication status: with skin complications Diabetes mellitus complication detail: with foot ulcer Diabetes mellitus fpc insulin use: without dedicated intermodal truck driver use Qualified Codes : E11.621 - Type 2 diabetes mellitus with foot ulcer; L97.509 - Non-pressure chronic ulcer of other part of unspecified foot with unspecified severity
[2017-07-26 14:55] VITALS: BP 135/86; PULSE 90; O2SAT 95
[2017-07-26] MEDS ORDERED: CRAN1TAB3 PO (15:12)
[2017-07-26] MEDS ORDERED: CHOL20009 PO (15:12)
[2017-07-26] MEDS ORDERED: GLC500 PO (15:12)
--- NOTE | 2017-07-28 12:19 | Pharmacy Progress Note ---
ED Pharmacist Culture FollowUp Date of Service: Jul 28, 2017. Patient was sent home with a prescription for cephalexin and bactrim for foot ulcer (I&D performed). MRSA grew out of deep wound culture and was resistant to bactrim. Discussed with Dr. Conway and patient and a prescription for doxycycline 100mg BID X 10 days was sent to [facility] in [place]. The patient verbalized understanding and noted she was following up with the wound clinic next week.
== END 2017-07-26 15:09 | disposition home or self-care (01) ==
LOC: C.EDB 12:07
DX: E11.621 Type 2 diabetes mellitus with foot ulcer (principal); L97.509 Non-pressure chronic ulcer of other part of unspecified foot with unspecified severity; E11.43 Type 2 diabetes mellitus with diabetic autonomic (poly)neuropathy; M48.00 Spinal stenosis, site unspecified; Z79.82 Long term (current) use of aspirin; Z79.899 Other long term (current) drug therapy; E66.9 Obesity, unspecified; Z68.39 Body mass index [BMI] 39.0-39.9, adult; S90.851A Superficial foreign body, right foot, initial encounter; W45.8XXA Other foreign body or object entering through skin, initial encounter

== ENCOUNTER → 2017-12-21 | Outpatient (CLI) | payer OTHER ==
[~2017-12-21] MED LIST changes: +ASPI-319 PO; -ASPI81TA21 PO; -CHOL1TAB42 PO; +CHOL20009 PO; -CRAN1CAP15 PO; +GABA-1220 PO; +GLC500 PO; -MELATAB2 PO; -METF1TAB53 PO; -PREG150C PO
--- NOTE | 2017-12-22 07:49 | MAMMOGRAPHY REPORT ---
BILATERAL DIGITAL SCREENING MAMMOGRAM TOMOSYNTHESIS WITH CAD: 12/21/2017 CLINICAL HISTORY: Routine screening. Patient has no complaints. TECHNIQUE: Breast tomosynthesis in addition to standard 2D mammography was performed. Current study was also evaluated with a Computer Aided Detection (CAD) system. COMPARISON: Comparison is made to exams dated: 11/20/2016 mammogram, 11/07/2015 mammogram, 07/28/2013 m ammogram, 07/22/2012 mammogram, 07/21/2011 mammogram, and 07/18/2010 mammogram - [facility]. BREAST COMPOSITION: There are scattered areas of fibroglandular density in both breasts. FINDINGS: The parenchymal pattern is unchanged. There are benign rim calcifications throughout the right greater than left breast. No developing mass, architectural distortion or cluster of suspiciou s microcalcifications is seen in either breast. IMPRESSION: ACR BI-RADS CATEGORY 2: BENIGN There is no mammographic evidence of malignancy. A 1 year screening mammogram is recommended. The pa tient will receive written notification of the results. Approximately 10% of breast cancers are not detected with mammography. A negative mammographic report should not delay biopsy if a clinically suggestive mass is present. Josselin Llamas M.D. ay/:12/21/2017 12:08:40 Wet Mixer: Giovanna ZARATE)(M), [facility] letter sent: Normal 1/2 BI-RADS Code: ACR BI-RADS Category 2: Benign
== END | disposition home or self-care (01) ==
LOC: C.MAMM 11:18
PROVIDERS: ATTEND Internal Medicine
DX: Z12.31 Encounter for screening mammogram for malignant neoplasm of breast (principal)

== ENCOUNTER → 2018-04-22 | Outpatient (CLI) | payer OTHER ==
[~2018-04-22] MED LIST changes: +LISI20TA9 PO; -LSN/20125 PO
[2018-04-22 12:52] LABS: HEMOGLOBIN A1C 8.3 % (4.5-5.6)
[2018-04-22 12:55] LABS: ALBUMIN 3.6 gm/dl (3.4-5.0); ALKALINE PHOSPHATASE 96 U/L (45-117); ALT/SGPT 36 U/L (12-78); AST/SGOT 24 U/L (15-37); BLOOD UREA NITROGEN 13 mg/dl (7-18); CALCIUM 8.8 mg/dl (8.5-10.1); CARBON DIOXIDE 27 mmol/L (21-32); CHOLESTEROL 193 mg/dl (0-200); CREATININE 0.95 mg/dl (0.60-1.20); GLUCOSE 159 mg/dl (70-99); LDL CHOLESTEROL CALCULATED 109 mg/dl; POTASSIUM 3.9 mmol/L (3.5-5.1); SODIUM 138 mmol/L (136-145); TOTAL PROTEIN 7.4 gm/dl (6.4-8.2)
== END | disposition home or self-care (01) ==
LOC: C.LABBFT 08:08
PROVIDERS: ATTEND Internal Medicine
DX: Z00.00 Encounter for general adult medical examination without abnormal findings (principal); E11.42 Type 2 diabetes mellitus with diabetic polyneuropathy; E11.9 Type 2 diabetes mellitus without complications; E78.5 Hyperlipidemia, unspecified; I10 Essential (primary) hypertension

== ENCOUNTER 2022-07-08 11:08 | Inpatient (IN) ==
[2022-07-08] MEDS ORDERED: dexAMETHasone**PF** 10 MG/ML VIAL IV ONE (11:39)
--- NOTE | 2022-07-08 11:53 | Emergency Department Note ---
Impression & Plan COVID-19, Hypoxia, Confusion ED Provider Note NAME: HARINDER SQUIRES AGE: 71 SEX: F : 1950 ARRIVES VIA: Ambulance INFORMANT: Patient, ED PROVIDER(S): Reji Conway DO CHIEF COMPLAINT: Altered mental status HPI: The patient is a 71-year-old female who presented to the emergency department for an evaluation of altered mental status. The patient was recently diagnosed with COVID-19. She states that she has had a dry cough and significant shortness of breath especially with any exertion. The patient denies having any hemoptysis. She denies having any chest pain. She states that she has been managing at home with [id number] medication. She states that she is not seen her doctor for the symptoms and has not been started on any specific medications for COVID-19. The patient states she is also been noticing she is forgetting a lot. She feels very confused and foggy at times. She said no recent trauma. She denies having any neck pain. She has had no lower extremity swelling or pain. She has had no black or bloody bowel moods. ROS: See above HPI for pertinent positives & negatives. A total of 10 systems reviewed and were otherwise negative. PAST MEDICAL HISTORY: See Below PAST SURGICAL HISTORY: See Below FAMILY HISTORY: See Below SOCIAL HISTORY: See Below HOME MEDICATIONS: See Below ALLERGIES: See Below VITALS: See Below PHYSICAL EXAMINATION: GENERAL: Patient is awake alert in no acute distress patient is resting comfortably and showing no signs of anxiety EYES: The conjunctivae are clear. The pupils are round and reactive. EARS, NOSE, MOUTH AND THROAT: The nose is without any evidence of any deformity. Mucous membranes are moist. Tongue is midline. NECK: The neck is nontender and supple. RESPIRATORY: Diminished breath sounds noted throughout. There were faint rales noted throughout. Mild conversational dyspnea was appreciated. CARDIOVASCULAR: Regular rate and rhythm noted there no murmurs rubs or gallops normal S1 normal S2. GASTROINTESTINAL: The abdomen is soft. Abdomen is nontender. MUSCULOSKELETAL/EXTREMITIES: There is no evidence of gross deformity full range of motion is noted in the hips and shoulders. SKIN: There is no obvious evidence of any rash. There are no petechiae, pallor or cyanosis noted. NEUROLOGIC: Patient is awake alert and oriented x3 strength is symmetric patellar reflexes are 2+ bilaterally MEDICAL DECISION MAKING: The patient is a 71-year-old female who presented to the emergency department by ambulance for an evaluation of difficulty breathing. The patient's been having worsening difficulty breathing as well as confusion. The patient recently was diagnosed with COVID-19 with a home test. The patient was treated with IV Decadron in the emergency department. I discussed the patient's laboratory and radiographic studies with her. Because of her findings I also discussed her case with the on-call [facility] hospitalist group. They have agreed to black luate the patient in the emergency department for further management and disposition. Triage Nursing notes reviewed. Prior medical records reviewed Vital Signs: reviewed and remarkable for hypoxia Differential diagnosis: Infection, hypoglycemia, electrolyte abnormalities, overdose, toxicologic, cardiac sources, intracerebral event, neurologic, trauma, as well as other pathologies. ER treatment provided: See below Diagnostics interpreted by me: ECG: EKG was obtained in the emergency department. My interpretation is normal sinus rhythm at 84 bpm. There is no ectopy. There is no acute ST segment abnormalities noted. This was compared to a tracing from April 08, 2021. No changes were noted. Cardiac Monitoring: An order was placed for continuous cardiac monitoring. The monitor shows a rate of 77 bpm with sinus rhythm. Laboratory studies: As stated above and show below. Imaging studies: See below Consultation(s): I discussed this case with Nik who is on for the [facility] hospitalist group. Past Med/Surg History Medical History Anxiety Cataract Depression Diabetic peripheral neuropathy History of COVID-19 2019, pcr [place], not hosp; "mild symptoms", loss taste/smell>resolved. History of diabetic ulcer of foot hx-resolved. Hyperlipidemia Hypertension Nut allergy Osteoarthritis Psoriasis Spinal stenosis Type 2 diabetes mellitus Vitamin D deficiency Surgical History History of open reduction and internal fixation (ORIF) procedure left arm fx repair---hardware in place History of wisdom tooth extraction Hx of cataract surgery Hx of colonoscopy S/P cholecystectomy S/P tubal ligation Family History Mother Diabetes Father Colonic polyp Grandfather (Maternal) Colorectal cancer Other No family history of adverse response to anesthesia Denies family history of Ovarian cancer Prostate cancer Myocardial infarction Breast cancer Social History Smoking Status: Never smoker Second Hand Exposure: No; Hx Alcohol Use: No Hx Substance Use: Yes Last Used Substance Other:: marijuana within the last week Preferred Language: Mosotho Communication Ability: Effective Visual Impairment: Limited Hearing Ability: Normal Lockstitcher Required: No Beliefs That Will Affect Care: None marital status: Current Living Situation: Other Current Living Situation Comment: lives with 24yo grandson current occupational status: retired current occupation: retired from career as a nurse How many Children do You have: 3 How many Children do You have Comment: 2 local, able to assist as needed however pt is very independent at this time with her care Feels Safe at Home: Yes Safety Concerns: Feels Safe At This Time Childhood Exposure to Second-Hand Smoke: Yes Diet Comment: High protein caffeine: Yes (coffee) during the past year weight has: remained stable Dental Care, Regularly: No Physical Activity Frequency: 3-4 Times per Week Seatbelt Use: always Sunscreen Use: Yes Do you think of yourself as: straight/heterosexual Gender Identity: Female Assistive Devices: Denture - Upper and Denture - Lower Assistive Devices Comment: dentures at home Allergies Allergies Allergy/AdvReac Type Severity Reaction Status Date / Time doxycycline Allergy Severe eye and Verified 07/06/22 10:57 throat swelling nut - unspecified Allergy Intermediate Hives Verified 07/06/22 10:57 Home Meds Home Medications Medication Instructions Recorded Confirmed aspirin 81 mg tablet,delayed 81 mg PO HS 02/07/19 07/08/22 release (Adult Aspirin Regimen) vitamin B complex 1 tab PO QAM 09/19/19 07/08/22 acetaminophen 500 mg tablet 1,000 mg PO Q6H PRN Pain 06/22/22 07/08/22 celecoxib 200 mg capsule (Celebrex) 200 mg PO QAM 06/22/22 07/08/22 cholecalciferol (vitamin D3) 25 25 mcg PO QAM 06/22/22 07/08/22 mcg (1,000 unit) tablet (Vitamin D3) dulaglutide 1.5 mg/0.5 mL 1.5 mg subcut Q7D 06/22/22 07/08/22 subcutaneous pen injector (Trulicity) epinephrine 0.3 mg/0.3 mL 0.3 ml IM UD PRN Nut Allergy 06/22/22 07/06/22 injection, auto-injector gabapentin 100 mg capsule 100 mg PO TID 06/22/22 07/08/22 glimepiride 4 mg tablet 4 mg PO QAM 06/22/22 07/08/22 lorazepam 0.5 mg tablet (Ativan) 0.5 mg PO UD PRN anxiety 06/22/22 07/08/22 nystatin 100,000 unit/gram topical 1 applic topical UD PRN Rash 06/22/22 07/06/22 powder simvastatin 10 mg tablet 10 mg PO HS 06/22/22 07/08/22 venlafaxine 150 mg 150 mg PO QAM 06/22/22 07/08/22 capsule,extended release 24 hr Previous Rx's Medication Instructions Recorded 3-in-1 Commode #1 ea 03/25/21 Walking Cane #1 ea 03/25/21 calcipotriene 0.005 % topical cream 1 applic topical BID #60 grams 08/14/21 lisinopril 20 1 tab PO QAM #90 tabs 08/14/21 mg-hydrochlorothiazide 12.5 mg tablet blood-glucose meter (OneTouch #1 ea 09/10/21 Verio Meter) gabapentin 800 mg tablet 800 mg PO TID #270 tabs 12/04/21 blood sugar diagnostic (OneTouch #100 ea 02/04/22 Verio test strips) metformin 1,000 mg tablet 1,000 mg PO BID #180 tabs 05/13/22 sulfamethoxazole 800 1 tab PO BID 7 days #14 tabs 06/29/22 mg-trimethoprim 160 mg tablet (Bactrim DS) venlafaxine 75 mg tablet 75 mg PO QAM #90 tabs 06/30/22 Results & Data (ED) Vital Signs Vital Signs - 24 hr 07/08/22 11:25 07/08/22 11:25 07/08/22 12:00 Temperature 37.3 C Temperature Source Oral Pulse Rate 83 Pulse Rate [Right Finger] 83 Pulse Rhythm Regular Pulse Rhythm [Right Finger] Regular Pulse Strength Normal Pulse Strength [Right Finger] Normal Respiratory Rate 20 18 Respiratory Effort / Characteristics Non-Labored Non-Labored Respiratory Depth Normal Normal Respiratory Pattern Regular Regular Blood Pressure 134/76 Blood Pressure [Right Arm] 136/83 Blood Pressure Mean 95 Blood Pressure Mean [Right Arm] 100 Blood Pressure Position Lying Blood Pressure Position [Right Arm] Lying Pulse Oximetry 94 94 Oxygen Delivery Method Room Air Room Air Room Air Sepsis Recent Fever Within 48 Hours No Sepsis New/Unexplained Change in Mental Status No Sepsis Action Taken by Nursing No Action Required 07/08/22 12:00 07/08/22 12:30 Temperature Temperature Source Pulse Rate Pulse Rate [Right Finger] Pulse Rhythm Pulse Rhythm [Right Finger] Pulse Strength Pulse Strength [Right Finger] Respiratory Rate Respiratory Effort / Characteristics Respiratory Depth Respiratory Pattern Blood Pressure Blood Pressure [Right Arm] Blood Pressure Mean Blood Pressure Mean [Right Arm] Blood Pressure Position Blood Pressure Position [Right Arm] Pulse Oximetry 88 L Oxygen Delivery Method Room Air Room Air Sepsis Recent Fever Within 48 Hours Sepsis New/Unexplained Change in Mental Status Sepsis Action Taken by Fdc Medications Current Medication List: was personally reviewed by me Laboratory Data Attestation: I reviewed the patient's lab results. Result diagrams: 07/09/22 07:00 07/09/22 07:00 Lab Results 07/08/22 07/08/22 07/08/22 Range/Units 11:25 11:25 11:25 WBC 4.24 L (4.8-10.8) K/ul RBC 5.22 (3.93-5.22) M/uL Hgb 14.9 (12.0-16.0) g/dl Hct 44.5 (34.1-44.9) % MCV 85.2 (80.0-100.0) fL MCH 28.5 (25.0-34.0) pg MCHC 33.5 (32.0-36.0) g/dL RDW Std Deviation 41.8 (36.4-46.3) fL RDW Coeff of Jacoby 13.4 (11.5-14.5) % Plt Count 190 (130-400) K/uL MPV 10.1 (9.4-12.3) fL Immature Gran % (Auto) 0.2 % Neut % (Auto) 61.2 % Lymph % (Auto) 20.5 % [place] % (Auto) 17.2 % Eos % (Auto) 0.0 % Baso % (Auto) 0.9 % Neut # (Auto) 2.59 (1.4-6.5) K/uL Lymph # (Auto) 0.87 L (1.2-3.4) K/uL [place] # (Auto) 0.73 (0.24-0.82) K/uL Eos # (Auto) 0.00 (0-0.50) K/uL Baso # (Auto) 0.04 (0-0.2) K/uL Immature Gran # (Auto) 0.01 (0.00-0.02) K/uL ESR (0-30) mm/hr PT 10.9 (9.0-12.0) Seconds INR 1.0 (0.9-1.1) APTT 30.6 (21.0-31.0) Seconds PTT Ratio 1.1 VBG pH (7.36-7.41) VBG pCO2 (38-50) mmHg VBG pO2 mmHg VBG HCO3 mmol/L VBG O2 Saturation % VBG Base Excess mEq/L Sodium 136 (136-145) mmol/L Potassium 3.7 (3.5-5.1) mmol/L Chloride 99 (98-107) mmol/L Carbon Dioxide 28 (21-32) mmol/L Anion Gap 9 (3-11) BUN 15 (6-23) mg/dl Creatinine 0.86 (0.6-1.2) mg/dl Est Cr Clr Drug Dosing 78.3 ml/min Est GFR ( Amer) 79.9 ml/min Est GFR (Non-Af Amer) 68.9 ml/min BUN/Creatinine Ratio 17.4 (10-20) Glucose 177 H (70-99(Fasting)) mg/dl Lactate (0.4-2.0) mmol/L Calcium 9.3 (8.5-10.1) mg/dl Magnesium 1.9 (1.7-2.4) mg/dl Total Bilirubin 0.4 (0.2-1.0) mg/dl Direct Bilirubin 0.1 (0-0.2) mg/dl AST 29 (13-39) U/L ALT 21 (7-52) U/L Alkaline Phosphatase 78 (34-104) U/L Troponin I High Sens 42.9 H (0-14) pg/ml C-Reactive Protein 1.07 H (0-0.5) mg/dl Total Protein 7.2 (6.0-8.3) gm/dl Albumin 4.0 (3.4-5.0) gm/dl Procalcitonin (0-0.5) ng/ml 07/08/22 07/08/22 07/08/22 Range/Units 11:25 11:25 11:25 WBC (4.8-10.8) K/ul RBC (3.93-5.22) M/uL Hgb (12.0-16.0) g/dl Hct (34.1-44.9) % MCV (80.0-100.0) fL MCH (25.0-34.0) pg MCHC (32.0-36.0) g/dL RDW Std Deviation (36.4-46.3) fL RDW Coeff of Jacoby (11.5-14.5) % Plt Count (130-400) K/uL MPV (9.4-12.3) fL Immature Gran % (Auto) % Neut % (Auto) % Lymph % (Auto) % [place] % (Auto) % Eos % (Auto) % Baso % (Auto) % Neut # (Auto) (1.4-6.5) K/uL Lymph # (Auto) (1.2-3.4) K/uL [place] # (Auto) (0.24-0.82) K/uL Eos # (Auto) (0-0.50) K/uL Baso # (Auto) (0-0.2) K/uL Immature Gran # (Auto) (0.00-0.02) K/uL ESR 27 (0-30) mm/hr PT (9.0-12.0) Seconds INR (0.9-1.1) APTT (21.0-31.0) Seconds PTT Ratio VBG pH (7.36-7.41) VBG pCO2 (38-50) mmHg VBG pO2 mmHg VBG HCO3 mmol/L VBG O2 Saturation % VBG Base Excess mEq/L Sodium (136-145) mmol/L Potassium (3.5-5.1) mmol/L Chloride (98-107) mmol/L Carbon Dioxide (21-32) mmol/L Anion Gap (3-11) BUN (6-23) mg/dl Creatinine (0.6-1.2) mg/dl Est Cr Clr Drug Dosing ml/min Est GFR ( Amer) ml/min Est GFR (Non-Af Amer) ml/min BUN/Creatinine Ratio (10-20) Glucose (70-99(Fasting)) mg/dl Lactate (0.4-2.0) mmol/L Calcium (8.5-10.1) mg/dl Magnesium (1.7-2.4) mg/dl Total Bilirubin (0.2-1.0) mg/dl Direct Bilirubin (0-0.2) mg/dl AST (13-39) U/L ALT (7-52) U/L Alkaline Phosphatase (34-104) U/L Troponin I High Sens (0-14) pg/ml C-Reactive Protein Cancelled (0-0.5) mg/dl Total Protein (6.0-8.3) gm/dl Albumin (3.4-5.0) gm/dl Procalcitonin < 0.05 (0-0.5) ng/ml 07/08/22 07/08/22 Range/Units 12:11 12:11 WBC (4.8-10.8) K/ul RBC (3.93-5.22) M/uL Hgb (12.0-16.0) g/dl Hct (34.1-44.9) % MCV (80.0-100.0) fL MCH (25.0-34.0) pg MCHC (32.0-36.0) g/dL RDW Std Deviation (36.4-46.3) fL RDW Coeff of Jacoby (11.5-14.5) % Plt Count (130-400) K/uL MPV (9.4-12.3) fL Immature Gran % (Auto) % Neut % (Auto) % Lymph % (Auto) % [place] % (Auto) % Eos % (Auto) % Baso % (Auto) % Neut # (Auto) (1.4-6.5) K/uL Lymph # (Auto) (1.2-3.4) K/uL [place] # (Auto) (0.24-0.82) K/uL Eos # (Auto) (0-0.50) K/uL Baso # (Auto) (0-0.2) K/uL Immature Gran # (Auto) (0.00-0.02) K/uL ESR (0-30) mm/hr PT (9.0-12.0) Seconds INR (0.9-1.1) APTT (21.0-31.0) Seconds PTT Ratio VBG pH 7.50 H (7.36-7.41) VBG pCO2 36 L (38-50) mmHg VBG pO2 52 mmHg VBG HCO3 28 mmol/L VBG O2 Saturation 87.2 % VBG Base Excess 4.9 mEq/L Sodium (136-145) mmol/L Potassium (3.5-5.1) mmol/L Chloride (98-107) mmol/L Carbon Dioxide (21-32) mmol/L Anion Gap (3-11) BUN (6-23) mg/dl Creatinine (0.6-1.2) mg/dl Est Cr Clr Drug Dosing ml/min Est GFR ( Amer) ml/min Est GFR (Non-Af Amer) ml/min BUN/Creatinine Ratio (10-20) Glucose (70-99(Fasting)) mg/dl Lactate 0.9 (0.4-2.0) mmol/L Calcium (8.5-10.1) mg/dl Magnesium (1.7-2.4) mg/dl Total Bilirubin (0.2-1.0) mg/dl Direct Bilirubin (0-0.2) mg/dl AST (13-39) U/L ALT (7-52) U/L Alkaline Phosphatase (34-104) U/L Troponin I High Sens (0-14) pg/ml C-Reactive Protein (0-0.5) mg/dl Total Protein (6.0-8.3) gm/dl Albumin (3.4-5.0) gm/dl Procalcitonin (0-0.5) ng/ml Administered Medications Albuterol (Albuterol 0.5% Neb Soln 2.5 Mg/0.5 Ml Vial) 2.5 mg NEB Q6R [facility]; Protocol Stop: 08/07/22 18:59 Last Admin: 07/09/22 07:28 Dose: 2.5 mg Documented By: Admin: 07/09/22 01:35 Dose: Not Given Documented By: Admin: 07/08/22 19:26 Dose: 2.5 mg Documented By: JENNIFER Aspirin (Aspirin 81 Mg Ectab) 81 mg PO HS [facility]ELSON Stop: 08/07/22 20:59 Last Admin: 07/08/22 20:14 Dose: 81 mg Documented By: VINCE Celecoxib (Celebrex 200 Mg Cap) 200 mg PO QAM [facility] Stop: 08/07/22 17:44 Last Admin: 07/09/22 08:51 Dose: 200 mg Documented By: Admin: 07/08/22 18:12 Dose: 200 mg Documented By: WILL Enoxaparin Sodium (Enoxaparin Inj 40 Mg/0.4 Ml Syr) 40 mg SQ Q12H [facility] Stop: 08/07/22 17:44 Last Admin: 07/09/22 05:11 Dose: 40 mg Documented By: Admin: 07/08/22 18:11 Dose: 40 mg Documented By: WILL Gabapentin (Gabapentin 300 Mg Cap) 900 mg PO TID [facility] Stop: 08/07/22 17:59 Last Admin: 07/09/22 08:51 Dose: 900 mg Documented By: Admin: 07/08/22 20:15 Dose: 900 mg Documented By: Admin: 07/08/22 18:36 Dose: 900 mg Documented By: WILL Lisinopril/HCTZ (Lisinopril/Hctz 20/12.5mg 1 Tab Tab) [facility] Stop: 08/07/22 17:44 Last Admin: 07/09/22 08:51 Dose: 1 tab Documented By: Admin: 07/08/22 18:13 Dose: 1 tab Documented By: WILL Dexamethasone 6 mg/ Syringe 1.5 mls @ 1 mls/min IV DAILY NELSON Stop: 07/19/22 08:59 Last Admin: 07/09/22 08:47 Dose: 1 mls/min Documented By: JACE Insulin Aspart (Insulin Aspart Per Unit) 0 units SC ACHS [facility] Stop: 08/07/22 17:44 Last Admin: 07/09/22 08:52 Dose: 9 units Documented By: JACE Co-signed By: WILL Admin: 07/08/22 20:33 Dose: 3 units Documented By: VINCE Co-signed By: YOLANDA Admin: 07/08/22 18:16 Dose: Not Given Documented By: WILL Insulin Human NPH (Insulin Human Nph) 25 units SC QAM [facility] Stop: 08/08/22 08:59 Last Admin: 07/09/22 08:52 Dose: 25 units Documented By: JACE Co-signed By: WILL Venlafaxine HCl (Venlafaxine Hcl Xr 150 Mg Capxr) 150 mg PO QAM [facility] Stop: 08/08/22 08:59 Last Admin: 07/09/22 08:56 Dose: 150 mg Documented By: JACE Venlafaxine HCl (Venlafaxine Hcl Xr 75 Mg Capxr) 75 mg PO QAM [facility] Stop: 08/08/22 08:59 Last Admin: 07/09/22 08:47 Dose: 75 mg Documented By: JACE Vitamin D (Cholecalciferol 1,000 Units 25 Mcg Tab) [facility] Stop: 08/08/22 08:59 Last Admin: 07/09/22 08:51 Dose: 1,000 units Documented By: JACE Discontinued Medications Dexamethasone Sodium Phosphate (DexamethasonePf 10 Mg/Ml Vial) 10 mg IV NOW ONE Stop: 07/08/22 11:40 Last Admin: 07/08/22 13:08 Dose: 10 mg Documented By: VENKAT Gabapentin (Gabapentin 800 Mg Tab) 900 mg PO TID [facility] Stop: 08/07/22 17:44 Last Admin: 07/08/22 18:40 Dose: Not Given Documented By: WILL Remdesivir 200 mg/ Sodium (Chloride) 250 mls @ 125 mls/hr IV ONE STA; Protocol Stop: 07/08/22 16:17 Last Infusion: 07/08/22 17:33 Dose: 0 mls/hr Documented By: Admin: 07/08/22 14:56 Dose: 125 mls/hr Documented By: IAN Lactated Ringer's (Lr) 1,000 mls @ 999 mls/hr IV .Q1H1M ONE Stop: 07/08/22 14:57 Last Infusion: 07/08/22 17:34 Dose: 0 mls/hr Documented By: Admin: 07/08/22 14:56 Dose: 999 mls/hr Documented By: IAN Insulin Aspart (Insulin Aspart Per Unit) 0 units SC TODAY@0000,0400 [facility] Stop: 08/08/22 00:00 Last Admin: 07/09/22 05:15 Dose: Not Given Documented By: Admin: 07/09/22 01:02 Dose: 1 units Documented By: VINCE Co-signed By: ROMAIN Insulin Glargine (Lantus Per Unit Charge) 5 units SQ BID [facility] Stop: 08/07/22 20:59 Last Admin: 07/08/22 20:33 Dose: 5 units Documented By: VINCE Co-signed By: YOLANDA Imaging Data Radiologist's Impression: Chest X-Ray 07/08/22 11:39 XR chest 1V portable CLINICAL HISTORY: Sepsis TECHNIQUE: Single frontal radiograph of the chest was obtained. Comparison: Comparison is made to chest radiograph 09/04/2021 FINDINGS: No lines and tubes are seen. The cardiomediastinal silhouette is normal. The lungs are clear. No evidence of pleural effusion or pneumothorax. IMPRESSION: No acute abnormalities and in particular no evidence of pneumonia. ACT 112: Negative or not required by law. Electronically signed by: Juan Damon M.D. 07/08/2022 12:33 PM Discharge Plan Visit Data Chief Complaint: Confusion Stated Complaint: CONFUSION, COVID + ED Provider: Reji Conway Discharge Problem: COVID-19, Hypoxia, Confusion Patient Disposition: Admitted As Inpatient Discharge Instructions Interventions: ED Discharge Assessment Last Done: 07/08/22 17:26
[2022-07-08 12:01] LABS: Basophils # (auto) 0.04 K/uL (0-0.2); Basophils % (auto) 0.9 %; Hematocrit (blood only) 44.5 % (34.1-44.9); Hemoglobin 14.9 g/dl (12.0-16.0); Immature Granulocytes # (auto) 0.01 K/uL (0.00-0.02); Immature Granulocytes % (auto) 0.2 %; Lymphocytes # (auto) 0.87 K/uL (1.2-3.4); Lymphocytes % (auto) 20.5 %; Mean Corpuscular Hemoglobin 28.5 pg (25.0-34.0); Mean Corpuscular Hgb Conc 33.5 g/dL (32.0-36.0); Mean Corpuscular Volume 85.2 fL (80.0-100.0); Mean Platelet Volume 10.1 fL (9.4-12.3); Monocytes # (auto) 0.73 K/uL (0.24-0.82); Monocytes % (auto) 17.2 %; Neutrophils # (auto) 2.59 K/uL (1.4-6.5); Neutrophils % (auto) 61.2 %; Platelet Count 190 K/uL (130-400); RDW Coefficient of Variation 13.4 % (11.5-14.5); RDW Standard Deviation 41.8 fL (36.4-46.3); Red Blood Count 5.22 M/uL (3.93-5.22); White Blood Count 4.24 K/ul (4.8-10.8)
[2022-07-08 12:17] LABS: Partial Thromboplastin Ratio 1.1; Partial Thromboplastin Time 30.6 Seconds (21.0-31.0); Prothrombin Time 10.9 Seconds (9.0-12.0)
[2022-07-08 12:25] LABS: BUN Creatinine Ratio 17.4 (10-20); Bilirubin Direct 0.1 mg/dl (0-0.2); Bilirubin,Total 0.4 mg/dl (0.2-1.0); C Reactive Protein 1.07 mg/dl (0-0.5); Calcium 9.3 mg/dl (8.5-10.1); Creatinine Clr Calc Pharmacy 78.3 ml/min; Est GFR (African American) 79.9 ml/min; Est GFR (Non-African American) 68.9 ml/min; Magnesium 1.9 mg/dl (1.7-2.4); Potassium 3.7 mmol/L (3.5-5.1); Total Protein 7.2 gm/dl (6.0-8.3)
--- NOTE | 2022-07-08 12:34 | XRay Report ---
XR chest 1V portable CLINICAL HISTORY: Sepsis TECHNIQUE: Single frontal radiograph of the chest was obtained. Comparison: Comparison is made to chest radiograph 09/04/2021 FINDINGS: No lines and tubes are seen. The cardiomediastinal silhouette is normal. The lungs are clear. No evid ence of pleural effusion or pneumothorax. IMPRESSION: No acute abnormalities and in particular no evidence of pneumonia. ACT 112: Negative or not required by law. Electronically signed by: Juan Damon M.D. 07/08/2022 12:33 PM
[2022-07-08 12:41] LABS: Base Excess VBG 4.9 mEq/L; HCO3 VBG 28 mmol/L; Oxygen Saturation VBG 87.2 %; PCO2 VBG 36 mmHg (38-50); PO2 VBG 52 mmHg
[2022-07-08 12:50] LABS: Troponin I High Sensitivity 42.9 pg/ml (0-14)
--- NOTE | 2022-07-08 13:21 | History & Physical Report ---
Date of Service July 08, 2022 Assessment & Plan (1) Hypoxia: Plan: -Admit to med/tele -Patient had transient episode of hypoxia while being evaluated by ED staff, currently stable on RA -Was given 10 mg IV dex by the ED staff, will continue with 6 mg daily moving forward for a total of 10 days -Will also start Remdesivir today as patient's renal and liver function are stable -Prn O2 ordered to keep SpO2 at or above 95% -Incentive spirometry, fluttery therapy, and prn albuterol ordered -AM CBC, BMP, AST, and ALT (2) Confusion: Plan: -At this time the patient's intermittent confusion is most likely due to current covid infection and possible dehydration -No focal neuro defects on exam, patient is currently alert and oriented x 5, did have a fall and hit her head 2 weeks ago, will get a CT head/brain for complete workup -Will give 1L LR bolus now for hydration (3) COVID-19: Plan: -See hypoxia (4) Elevated troponin: Plan: -First high sensitivity trop elevated at 42.9, patient is asymptomatic and without acute ECG changes -Possibly related to demand ischemia -Will repeat another tropnonin now (5) Diabetic peripheral neuropathy: Plan: -Continue celebrex and gabapentin (6) Depression: Plan: -Continue Venlafaxine (7) Vitamin D deficiency: Plan: -Continue Vit D (8) Type 2 diabetes mellitus: Plan: -Hold metformin and glimepiride, also on Trulicity weekly -Will start with 5 units lantus BID and correction factor of 40 -Patient may need escalated dosing due to dex causing hyperglycemia, continue to monitor (9) Hypertension: Plan: -Continue lisinopril-HCTZ (10) Hyperlipidemia: Plan: -Will hold statin and check CK prior to restarting Plan The patient was discussed with Dr. Robbins at the time of the admission History of Present Illness Chief Complaint: Confusion Primary Care Provider: Carol Ayoub MD Princess is a 71 year old female with a PMH significant for HTN, DM II, hyperlipidemia, depression, anxiety, psoriasis, who presented to the [facility] ED on 07/08/22 with a chief complaint of AMS. Per the ED note and chart review, the patient tested positive for covid 19 on 07/06/22. The patient has reportedly had SOB and cough at home with intermittent periods of confusion/fogginess. In the ED the patient was found to be afebrile, hemodynamically stable and initially stable on RA. During her time in the ED she eventually desaturated into the high 80's on RA. Labs were remarkable for normal WBC, VBG showing a pH of 7.50 pCO2 of 36, and pO2 of 52, renal function and electrolytes WNL, troponin of 42.9, CRP of 1.07, and procal < 0.05. Chest xray was negative for acute findings. ECG was without signs of acute ST segment or T-wave changes. Prior to admission the patient was given 10 mg IV dexamethasone. At the time of the exam the patient was resting comfortably in bed in no acute distress with her daughter sitting bedside. The majority of the history was obtained from the patient's daughter due to the patient's confusion. They state that the patient tested positive for covid on 07/06, which is when her symptoms started. She has been experiencing, fever, chills, headache, SOB, and cough. She has also had a poor appetite since her symptoms began. He daughter and some of her other family members also tested positive for covid recently. The patient did have the covid vaccine and booster previously. Over the past few days the patient has been very tired and confused. She states that she has been forgetting to take her medications and just has moments of confusion which then pass; normally she has no confusion and is able to function well. She lives with her grandson but he is not currently at the house this week. She denies any chest pain, nausea, vomiting, diarrhea, dysuria, hematuria. Of note, the patient did fall and hit her head approximately 2 weeks ago, she did not lose conscious ness and is not on blood thinners. I spoke to the patient and her daughter regarding starting Remdesivir, after discussing the risks and benefits they would like her to start Remdesivir today. I also spoke to them regarding code status, she is a Full Code and her daughter would make decisions for her if she could not make them herself. She recently completely a course of Bactrim for a UTI, she is no longer experiencing dysuria or urinary frequency. Allergies Allergy/AdvReac Type Severity Reaction Status Date / Time doxycycline Allergy Severe eye and Verified 07/06/22 10:57 throat swelling nut - unspecified Allergy Intermediate Hives Verified 07/06/22 10:57 Home Medications Medication Instructions Recorded Confirmed Type aspirin 81 mg tablet,delayed 81 mg PO HS 02/07/19 07/13/22 History release (Adult Aspirin Regimen) vitamin B complex 1 tab PO QAM 09/19/19 07/13/22 History 3-in-1 Commode #1 ea 03/25/21 07/13/22 Rx Walking Cane #1 ea 03/25/21 07/13/22 Rx calcipotriene 0.005 % topical cream 1 applic topical BID #60 grams 08/14/21 07/13/22 Rx blood-glucose meter (OneTouch #1 ea 09/10/21 07/13/22 Rx Verio Meter) gabapentin 800 mg tablet 800 mg PO TID #270 tabs 12/04/21 07/13/22 Rx blood sugar diagnostic (OneTouch #100 ea 02/04/22 07/13/22 Rx Verio test strips) metformin 1,000 mg tablet 1,000 mg PO BID #180 tabs 05/13/22 07/13/22 Rx acetaminophen 500 mg tablet 1,000 mg PO Q6H PRN Pain 06/22/22 07/13/22 History celecoxib 200 mg capsule (Celebrex) 200 mg PO QAM 06/22/22 07/13/22 History cholecalciferol (vitamin D3) 25 25 mcg PO QAM 06/22/22 07/13/22 History mcg (1,000 unit) tablet (Vitamin D3) dulaglutide 1.5 mg/0.5 mL 1.5 mg subcut Q7D 06/22/22 07/13/22 History subcutaneous pen injector (Trulicity) epinephrine 0.3 mg/0.3 mL 0.3 ml IM UD PRN Nut Allergy 06/22/22 07/13/22 History injection, auto-injector gabapentin 100 mg capsule 100 mg PO TID 06/22/22 07/13/22 History glimepiride 4 mg tablet 4 mg PO QAM 06/22/22 07/13/22 History lorazepam 0.5 mg tablet (Ativan) 0.5 mg PO UD PRN anxiety 06/22/22 07/13/22 History nystatin 100,000 unit/gram topical 1 applic topical UD PRN Rash 06/22/22 07/13/22 History powder simvastatin 10 mg tablet 10 mg PO HS 06/22/22 07/13/22 History venlafaxine 150 mg 150 mg PO QAM 06/22/22 07/13/22 History capsule,extended release 24 hr venlafaxine 75 mg tablet 75 mg PO QAM #90 tabs 06/30/22 07/13/22 Rx blood-glucose meter (OneTouch #1 ea 07/10/22 07/13/22 Rx Verio Meter) lisinopril 20 1 tab PO QAM #90 tabs 07/10/22 07/13/22 Rx mg-hydrochlorothiazide 12.5 mg tablet Past Med/Surg History Medical History Anxiety Cataract Depression Diabetic peripheral neuropathy History of COVID-2019, pcr [place], not hosp; "mild symptoms", loss taste/smell>resolved. History of diabetic ulcer of foot hx-resolved. Hyperlipidemia Hypertension Nut allergy Osteoarthritis Psoriasis Spinal stenosis Type 2 diabetes mellitus Vitamin D deficiency Surgical History History of open reduction and internal fixation (ORIF) procedure left arm fx repair---hardware in place History of wisdom tooth extraction Hx of cataract surgery Hx of colonoscopy S/P cholecystectomy S/P tubal ligation Family History Mother Diabetes Father Colonic polyp Grandfather (Maternal) Colorectal cancer Other No family history of adverse response to anesthesia Denies family history of Ovarian cancer Prostate cancer Myocardial infarction Breast cancer Social History Smoking Status: Never smoker Second Hand Exposure: No; Hx Alcohol Use: No Hx Substance Use: Yes Last Used Substance Other:: marijuana within the last week Preferred Language: Occitan Communication Ability: Effective Visual Impairment: Limited Hearing Ability: Normal Icu Nurse Required: No Beliefs That Will Affect Care: None marital status: / Current Living Situation: Other Current Living Situation Comment: lives with 24yo grandson current occupational status: retired current occupation: retired from career as a nurse How many Children do You have: 2 How many Children do You have Comment: 2 local, able to assist as needed cruzito guthrie pt is very independent at this time with her care Feels Safe at Home: Yes Childhood Exposure to Second-Hand Smoke: Yes Diet Comment: High protein caffeine: Yes (coffee) during the past year weight has: remained stable Dental Care, Regularly: No Physical Activity Frequency: 3-4 Times per Week Seatbelt Use: always Sunscreen Use: Yes Do you think of yourself as: straight/heterosexual Gender Identity: Female Assistive Devices: Cane Review of Systems Review of Systems: Denies current headache, changes in vision, hearing, taste, and smell, chest pain, nausea, vomiting, diarrhea, hematemesis, melena, dysuria, hematuria. All systems have been reviewed and are otherwise negative. Physical Exam Physical Exam: Physical Exam: General: In no acute distress, stated age, well-nourished, good hygiene HEENT: Normocephalic, atraumatic, no scleral icterus, pupils around round, symmetrical, and reactive to light, moist mucus membranes, trachea midline, no thyromegaly Chest/Pulm: No respiratory distress, symmetrical chest expansion, clear breath sounds throughout Cardiac: RRR, no murmurs noted Abdomen: Negative for ascites and bruising, normoactive bowel sounds, soft, non-tender to palpation throughout Musculoskeletal: Symmetrical and without signs of acute trauma, upper and lower extremities with full ROM, no atrophy, spasticity, or flaccidity Extremities: Radial, dorsalis pedis, and posterior tibial pulses are intact and symmetrical, no edema noted in the BL LE's Skin: Warm, dry, patient with a chronic skin tear on the right cleary in various stages of healing, no erythema or sinus tracking noted surrounding the lesion Neuro: Alert and oriented to person, place, month, year, and president, no focal defects, CN II-XII tested and intact, finger to nose test negative, no tremors noted; patient with intermittent moments of confusion/slow to answer questions but is completely alert and oriented Psych: No acute distress, calm and cooperative during the exam Results & Data Results & Data ([facility]) Vital Signs (Past 12 Hours) Vital Signs Temp Pulse Pulse Resp BP BP Pulse Ox 07/08/22 12:30 88 L 07/08/22 12:00 07/08/22 12:00 83 18 136/83 94 07/08/22 11:25 07/08/22 11:25 37.3 C 83 20 134/76 94 O2 Del Method 07/08/22 12:30 Room Air 07/08/22 12:00 Room Air 07/08/22 12:00 Room Air 07/08/22 11:25 Room Air 07/08/22 11:25 Room Air Laboratory Results Abnormal lab results 07/08/22 07/08/22 07/08/22 Range/Units 11:25 11:25 12:11 WBC 4.24 L (4.8-10.8) K/ul Lymph # (Auto) 0.87 L (1.2-3.4) K/uL VBG pH 7.50 H (7.36-7.41) VBG pCO2 36 L (38-50) mmHg Glucose 177 H (70-99(Fasting)) mg/dl Troponin I High Sens 42.9 H (0-14) pg/ml C-Reactive Protein 1.07 H (0-0.5) mg/dl Diagnostic Findings Chest X-Ray 07/08/22 11:39 XR chest 1V portable CLINICAL HISTORY: Sepsis TECHNIQUE: Single frontal radiograph of the chest was obtained. Comparison: Comparison is made to chest radiograph 09/04/2021 FINDINGS: No lines and tubes are seen. The cardiomediastinal silhouette is normal. The lungs are clear. No evidence of pleural effusion or pneumothorax. IMPRESSION: No acute abnormalities and in particular no evidence of pneumonia. ACT 112: Negative or not required by law. Electronically signed by: Juan Damon M.D. 07/08/2022 12:33 PM ECG Additional Comments: Normal sinus rhythm Normal ECG When compared with ECG of 08-APR-2021 21:44, No significant change was found Code Status & VTE Plan Code Status Full code VTE Prophylaxis Plan VTE Prophylaxis will be ordered: Yes Supervising Physician Co-Signing Physician Notes I personally saw and examined the patient. I verified all reid points and agree with Nik Haynes PA-C with the following exceptions and/or additions: 71-year-old male admission for altered mental status after recent positive test for COVID. Mild hypoxia and shortness of breath. Poor appetite. O/E RRR, no murmurs, Chest CTAB, no extremity focal weakness, no facial droop A/P COVID-19 - dexamethasone and remdesivir as above. continue his other routine medications. PG Care Time/CCT Total # of Minutes Spent Total Time Spent with Patient: Total time spent is greater than 50% in coordination of care (as documented) at patient's floor/unit and/or counseling patient: [place] [address] Initial Inpt Care Lvl 2 Patient Type Established Medical Decision Making Moderate Complexity Diagnoses Hypoxia R09.02 Confusion R41.0 COVID-19 U07.1 Elevated troponin R77.8 Diabetic peripheral neuropathy E11.42 Depression F32.9 Vitamin D deficiency E55.9 Type 2 diabetes mellitus E11.9 Hypertension I10 Hyperlipidemia E78.5
[2022-07-08] MEDS ORDERED: LACTATED RINGER'S 1,000 ML IV ONE (13:57)
[2022-07-08 14:04] LABS: Influenza A virus by PCR Positive (Neg); Influenza B virus by PCR Negative (Neg); RSV by PCR Negative (Neg)
[2022-07-08 14:12] LABS: SARS CoV2 RNA(COVID-19)Cepheid POSITIVE (Negative)
--- NOTE | 2022-07-08 14:12 | Electrocardiogram Report ---
Test Reason : Blood Pressure : / mmHG Vent. Rate : 084 BPM Atrial Rate : 084 BPM P-R Int : 146 ms QRS Dur : 088 ms QT Int : 364 ms P-R-T Axes : 076 085 071 degrees QTc Int : 430 ms Normal sinus rhythm Normal ECG When compared with ECG of 08-APR-2021 21:44, No significant change was found Confirmed by Thom Ochoa ([id number]) on 07/08/2022 2:11:37 PM Referred By: Confirmed By:Gigi Ochoa
[2022-07-08] MEDS ORDERED: REMDESIVIR 200 MG in SODIUM CHLORIDE 0.9% 210 ML IV STA (14:18)
[2022-07-08 15:35] LABS: Troponin I High Sensitivity 50.9 pg/ml (0-14)
--- NOTE | 2022-07-08 16:04 | CT Scan Report ---
CT head/brain wo con CLINICAL HISTORY: 71 years-old Female with confusion. Acute confusion TECHNIQUE: Multiple axial CT images of the head were obtained without contrast. A dose lowering tech nique was utilized adhering to the principles of ALARA. CT DOSE: 614.27 mGy.cm COMPARISON: Head CT 01/11/2017 FINDINGS: No acute intracranial hemorrhage, midline shift, intracranial mass, hydrocephalus, territorial ischem ia or abnormal extra-axial collection. Mild involutional changes. White matter hypodensities suggest chronic microvascular ischemic disease. Unchanged calcifications of the lentiform nuclei. The calvarium is intact. Minimal mucosal thickening of the paranasal sinuses. Right-sided lens repai r. Mastoid air cells are generally clear. IMPRESSION: No acute intracranial abnormality. ACT 112: Negative or not required by law. The above report was generated using voice recognition software. It may contain grammatical, syntax o r spelling errors. Electronically signed by: Dilip Silverio M.D. 07/08/2022 4:02 PM
[2022-07-08] MEDS ORDERED: GLUCOSE 10 TAB/TUBE PO PRN (17:24)
[2022-07-08] MEDS ORDERED: GLUCAGON FOR INJ 1 MG VIAL SQ PRN (17:24)
[2022-07-08] MEDS ORDERED: DEXTROSE 50% 50 ML SYRINGE IV PRN (17:24)
[2022-07-08] MEDS ORDERED: ACETAMINOPHEN 325 MG TAB PO PRN (17:24)
[2022-07-08] MEDS ORDERED: GLUCOSE 40% GEL 15 GM TUBE PO PRN (17:24)
[2022-07-08] MEDS ORDERED: CARBOHYDRATES FOR HYPOGLYCEMIA PO PRN (17:24)
[2022-07-08] MEDS ORDERED: GABAPENTIN 800 MG TAB PO SCH (17:45)
[2022-07-08] MEDS: ENOXAPARIN INJ 40 MG/0.4 ML SYR SQ SCH (18:11)
[2022-07-08] MEDS: CeleBREX 200 MG CAP PO SCH (18:12)
[2022-07-08] MEDS: LISINOPRIL/HCTZ 20/12.5MG 1 TAB TAB PO SCH (18:13)
[2022-07-08] MEDS: INSULIN ASPART PER UNIT SC SCH ×2 (18:16→20:33)
[2022-07-08] MEDS: GABAPENTIN 300 MG CAP PO SCH ×2 (18:36→20:15)
[2022-07-08] MEDS: ALBUTEROL 0.5% NEB SOLN 2.5 MG/0.5 ML VIAL NEB SCH (19:26)
[2022-07-08] MEDS: ASPIRIN 81 MG ECTAB PO SCH (20:14)
[2022-07-08] MEDS ORDERED: LANTUS PER UNIT CHARGE SQ SCH (21:00)
[2022-07-08] MEDS ORDERED: PHARMACY GLYCEMIC MGMT CONSULT PRN (21:27)
[2022-07-09] MEDS: INSULIN ASPART PER UNIT SC SCH ×6 (01:02→20:30)
[2022-07-09] MEDS: ALBUTEROL 0.5% NEB SOLN 2.5 MG/0.5 ML VIAL NEB SCH ×3 (01:35→13:00)
[2022-07-09] MEDS: ENOXAPARIN INJ 40 MG/0.4 ML SYR SQ SCH ×2 (05:11→17:04)
[2022-07-09] MEDS ORDERED: INSULIN ASPART PER UNIT SC SCH (07:30)
[2022-07-09 07:51] LABS: Hematocrit (blood only) 46.4 % (34.1-44.9); Hemoglobin 15.2 g/dl (12.0-16.0); Mean Corpuscular Hemoglobin 28.6 pg (25.0-34.0); Mean Corpuscular Hgb Conc 32.8 g/dL (32.0-36.0); Mean Corpuscular Volume 87.4 fL (80.0-100.0); Mean Platelet Volume 10.1 fL (9.4-12.3); Platelet Count 181 K/uL (130-400); RDW Coefficient of Variation 13.2 % (11.5-14.5); RDW Standard Deviation 41.9 fL (36.4-46.3); Red Blood Count 5.31 M/uL (3.93-5.22); White Blood Count 4.26 K/ul (4.8-10.8)
[2022-07-09 08:11] LABS: BUN Creatinine Ratio 27.8 (10-20); Calcium 9.3 mg/dl (8.5-10.1); Creatinine Clr Calc Pharmacy 92.9 ml/min; Est GFR (Non-African American) 85.4 ml/min; Potassium 3.7 mmol/L (3.5-5.1)
[2022-07-09] MEDS: dexAMETHasone 6 MG in SYRINGE 0 ML IV SCH (08:47)
[2022-07-09] MEDS: VENLAFAXINE HCL XR 75 MG CAPXR PO SCH (08:47)
[2022-07-09] MEDS: CeleBREX 200 MG CAP PO SCH (08:51)
[2022-07-09] MEDS: GABAPENTIN 300 MG CAP PO SCH ×3 (08:51→20:31)
[2022-07-09] MEDS: LISINOPRIL/HCTZ 20/12.5MG 1 TAB TAB PO SCH (08:51)
[2022-07-09] MEDS: CHOLECALCIFEROL 1,000 UNITS 25 MCG TAB PO SCH (08:51)
[2022-07-09] MEDS: INSULIN HUMAN NPH SC SCH (08:52)
[2022-07-09] MEDS: VENLAFAXINE HCL XR 150 MG CAPXR PO SCH (08:56)
[2022-07-09] MEDS ORDERED: INSULIN HUMAN NPH SC SCH (09:00)
[2022-07-09] MEDS: REMDESIVIR 100 MG in SODIUM CHLORIDE 0.9% 230 ML IV SCH (11:56)
--- NOTE | 2022-07-09 12:33 | Pharmacy Report ---
Pharmacy Glycemic Short Note 2 - Date of Service July 09, 2022 - Glycemic Short BSG Results (Last 24 hours): 07/08/22 07/08/22 07/09/22 17:17 20:09 00:41 Glucose POC Glucose 184 H 244 H 146 H 07/09/22 07/09/22 07/09/22 05:15 07:00 07:46 Glucose 121 H POC Glucose 118 H 125 H 07/09/22 11:53 Glucose POC Glucose 197 H OUTPATIENT ANTIDIABETIC REGIMEN: * Trulicity 1.5mg S weekly * Glimepiride 4mg PO QAM * Metformin 1g PO BID * A1c 6.6% 01/07/21, new A1c pending ASSESSMENT: * 71 yo female, admitted with hypoxia, +COVID19, started on IV steroids, dexamethasone 10mg last night, and 6mg IV daily starting this morning, and remdesivir. * Patient started on NPH this morning to cover steroid effects, BSG rising today 118--> 197mg/dl - tighten CF/CR, and likely increase NPH tomorrow morning. PLAN FOR INPATIENT GLYCEMIC CONTROL: * Hold outpatient diabetes medications * Basal insulin * NPH 25 units SQ this AM, likely increase tomorrow morning, given with IV dexamethasone * Bolus insulin * NovoLog per scale ACHS or Q6hrs while NPO * Goal Range: Low 110 mg/dL - High 140 mg/dL * Correction Factor: 15 mg/dL/unit * Nutritional / Prandial insulin per carb ratio of 1 unit per 5 grams CHO consumed
[2022-07-09] MEDS ORDERED: ALBUTEROL 0.5% NEB SOLN 2.5 MG/0.5 ML VIAL NEB PRN (13:45)
--- NOTE | 2022-07-09 20:13 | Hospitalist Progress Note ---
Date of Service July 09, 2022 Assessment & Plan (1) Hypoxia: Plan: -Patient had transient episode of hypoxia while being evaluated by ED staff, currently stable on RA -Was given 10 mg IV dex by the ED staff, will continue with 6 mg daily moving forward for a total of 10 days -Will also start Remdesivir today as patient's renal and liver function are stable -Prn O2 ordered to keep SpO2 at or above 95% -Incentive spirometry, fluttery therapy, and prn albuterol ordered -AM CBC, BMP, AST, and ALT (2) Confusion: Plan: -At this time the patient's intermittent confusion is most likely due to current covid infection and possible dehydration -No focal neuro defects on exam, patient is currently alert and oriented x 5, did have a fall and hit her head 2 weeks ago, will get a CT head/brain for complete workup -Will give 1L LR bolus now for hydration (3) COVID-19: Plan: -See hypoxia (4) Elevated troponin: Plan: -First high sensitivity trop elevated at 42.9, patient is asymptomatic and without acute ECG changes -Possibly related to demand ischemia -Will repeat another tropnonin now (5) Diabetic peripheral neuropathy: Plan: -Continue celebrex and gabapentin (6) Depression: Plan: -Continue Venlafaxine (7) Vitamin D deficiency: Plan: -Continue Vit D (8) Type 2 diabetes mellitus: Plan: -Hold metformin and glimepiride, also on Trulicity weekly -Will start with 5 units lantus BID and correction factor of 40 -Patient may need escalated dosing due to dex causing hyperglycemia, continue to monitor (9) Hypertension: Plan: -Continue lisinopril-HCTZ (10) Hyperlipidemia: Plan: -Will hold statin and check CK prior to restarting Plan Admission and Anticipated Discharge Date Admission Date: July 08, 2022 Subjective Slight improvement in shortness of breath No chest pain Physical Exam Physical Exam: Head and ENT no thyroid enlargement trachea midline Cardiovascular S1-S2 are normal no S3 Lungs bilateral air entry fair no wheezing Abdomen soft nondistended positive bowel sounds no rebound tenderness Extremity shows trace edema Neurologically no focal deficits Skin shows no rash no cyanosis Results & Data Results & Data ([facility]) Vital Signs (Past 12 Hours) Vital Signs Temp Pulse Pulse Resp BP Pulse Ox O2 Del Method 07/09/22 19:21 36.6 C 75 20 114/64 96 Nasal Cannula 07/09/22 15:00 79 07/09/22 14:12 36.7 C 75 20 112/66 96 07/09/22 13:02 73 16 93 Nasal Cannula O2 Flow Rate 07/09/22 19:21 2 07/09/22 15:00 07/09/22 14:12 07/09/22 13:02 2 PG Care Time/CCT Total # of Minutes Spent Total Time Spent with Patient: Total time spent is greater than 50% in coordination of care (as documented) at patient's floor/unit and/or counseling patient: Coding Level of Care Code 22746 Subseq Hosp Care Lvl 2 Diagnoses Hypoxia R09.02 Confusion R41.0 COVID-19 U07.1 Elevated troponin R77.8 Diabetic peripheral neuropathy E11.42 Depression F32.9 Vitamin D deficiency E55.9 Type 2 diabetes mellitus E11.9 Hypertension I10 Hyperlipidemia E78.5
[2022-07-09] MEDS: ASPIRIN 81 MG ECTAB PO SCH (20:31)
[2022-07-10] MEDS: ENOXAPARIN INJ 40 MG/0.4 ML SYR SQ SCH ×2 (05:01→17:42)
[2022-07-10 06:24] LABS: Appearance Urine Clear (Clear); Bilirubin Urine Negative (Negative); Blood Urine Negative (Negative); Color Urine Yellow; Glucose Urine UA Negative (Negative); Ketones Urine Negative (Negative); Leukocyte Esterase Urine Negative (Negative); Nitrite Urine Negative (Negative); Protein Urine Negative (Negative); Specific Gravity Urine 1.016 (1.000-1.030); Urobilinogen Urine Negative (Negative)
[2022-07-10 06:32] LABS: Hematocrit (blood only) 42.7 % (34.1-44.9); Hemoglobin 14.4 g/dl (12.0-16.0); Mean Corpuscular Hemoglobin 28.8 pg (25.0-34.0); Mean Corpuscular Hgb Conc 33.7 g/dL (32.0-36.0); Mean Corpuscular Volume 85.4 fL (80.0-100.0); Mean Platelet Volume 10.2 fL (9.4-12.3); Platelet Count 201 K/uL (130-400); RDW Coefficient of Variation 13.3 % (11.5-14.5); RDW Standard Deviation 41.3 fL (36.4-46.3); White Blood Count 6.44 K/ul (4.8-10.8)
[2022-07-10 06:54] LABS: BUN Creatinine Ratio 34.1 (10-20); Calcium 8.7 mg/dl (8.5-10.1); Creatinine Clr Calc Pharmacy 79.1 ml/min; Est GFR (Non-African American) 69.9 ml/min; Potassium 3.3 mmol/L (3.5-5.1)
[2022-07-10] MEDS: INSULIN ASPART PER UNIT SC SCH ×4 (07:49→20:08)
[2022-07-10 07:50] LABS: Estimated Average Glucose 154 mg/dl
[2022-07-10] MEDS: GABAPENTIN 300 MG CAP PO SCH ×3 (07:56→20:21)
[2022-07-10] MEDS: LISINOPRIL/HCTZ 20/12.5MG 1 TAB TAB PO SCH (07:57)
[2022-07-10] MEDS: CHOLECALCIFEROL 1,000 UNITS 25 MCG TAB PO SCH (07:57)
[2022-07-10] MEDS: VENLAFAXINE HCL XR 150 MG CAPXR PO SCH (07:57)
[2022-07-10] MEDS: VENLAFAXINE HCL XR 75 MG CAPXR PO SCH (07:57)
[2022-07-10] MEDS: CeleBREX 200 MG CAP PO SCH (07:57)
[2022-07-10] MEDS: dexAMETHasone 6 MG in SYRINGE 0 ML IV SCH (07:58)
[2022-07-10] MEDS: INSULIN HUMAN NPH SC SCH (09:13)
[2022-07-10] MEDS: REMDESIVIR 100 MG in SODIUM CHLORIDE 0.9% 230 ML IV SCH (12:11)
--- NOTE | 2022-07-10 14:08 | Pharmacy Report ---
Pharmacy Glycemic Short Note 2 - Date of Service July 10, 2022 - Glycemic Short BSG Results (Last 24 hours): 07/09/22 07/09/22 07/10/22 16:46 20:03 05:55 Glucose 87 POC Glucose 126 H 105 H Fasting Glucose 87 07/10/22 07/10/22 07:52 11:05 Glucose POC Glucose 81 232 H Fasting Glucose OUTPATIENT ANTIDIABETIC REGIMEN: * Trulicity 1.5mg S weekly * Glimepiride 4mg PO QAM * Metformin 1g PO BID * A1c 6.6% 01/07/21, new A1c pending ASSESSMENT: 07/10/22: * Patient received total 52 units of insulin today; 25 units basal + 27 units bolus. * BSGs yesterday were [phone] mg/dl. Fasting BSG today was 87 mg/dl. * NPH 25 units yesterday resulted in BSGs within goal range at dinner and HS. * Patient continues on IV Dexamethasone 6 mg daily. Today, it was given slightly earlier than scheduled. * Pre-lunch BSG today was 232 mg/dl. However, expect BSG to trend down by dinner. * Continued NPH 25 units daily to cover IV Dex and Novolog parameters the same as yesterday. 07/09/22: * 71 yo female, admitted with hypoxia, +COVID19, started on IV steroids, dexamethasone 10mg last night, and 6mg IV daily starting this morning, and remdesivir. * Patient started on NPH this morning to cover steroid effects, BSG rising today 118--> 197mg/dl - tighten CF/CR, and likely increase NPH tomorrow morning. PLAN FOR INPATIENT GLYCEMIC CONTROL: * Hold outpatient diabetes medications * Basal insulin * NPH 25 units SQ QAM, to be given with IV dexamethasone * Bolus insulin * NovoLog per scale ACHS or Q6hrs while NPO * Goal Range: Low 110 mg/dL - High 140 mg/dL * Correction Factor: 15 mg/dL/unit * Nutritional / Prandial insulin per carb ratio of 1 unit per 5 grams CHO consumed
--- NOTE | 2022-07-10 19:57 | Hospitalist Progress Note ---
Date of Service July 10, 2022 Assessment & Plan (1) Hypoxia: Plan: -Patient had transient episode of hypoxia while being evaluated by ED staff, currently stable on RA -Was given 10 mg IV dex by the ED staff, will continue with 6 mg daily moving forward for a total of 10 days -Will also start Remdesivir today as patient's renal and liver function are stable -Prn O2 ordered to keep SpO2 at or above 95% -Incentive spirometry, fluttery therapy, and prn albuterol ordered -AM CBC, BMP, AST, and ALT (2) Confusion: Plan: -At this time the patient's intermittent confusion is most likely due to current covid infection and possible dehydration -No focal neuro defects on exam, patient is currently alert and oriented x 5, did have a fall and hit her head 2 weeks ago, will get a CT head/brain for complete workup -Will give 1L LR bolus now for hydration (3) COVID-19: Plan: -See hypoxia (4) Elevated troponin: Plan: -First high sensitivity trop elevated at 42.9, patient is asymptomatic and without acute ECG changes -Possibly related to demand ischemia -Will repeat another tropnonin now (5) Diabetic peripheral neuropathy: Plan: -Continue celebrex and gabapentin (6) Depression: Plan: -Continue Venlafaxine (7) Vitamin D deficiency: Plan: -Continue Vit D (8) Type 2 diabetes mellitus: Plan: -Hold metformin and glimepiride, also on Trulicity weekly -Will start with 5 units lantus BID and correction factor of 40 -Patient may need escalated dosing due to dex causing hyperglycemia, continue to monitor (9) Hypertension: Plan: -Continue lisinopril-HCTZ (10) Hyperlipidemia: Plan: -Will hold statin and check CK prior to restarting Plan Admission and Anticipated Discharge Date Admission Date: July 08, 2022 Subjective Slight improvement in shortness of breath No chest pain Physical Exam Physical Exam: Head and ENT no thyroid enlargement trachea midline Cardiovascular S1-S2 are normal no S3 Lungs bilateral air entry fair no wheezing Abdomen soft nondistended positive bowel sounds no rebound tenderness Extremity shows trace edema Neurologically no focal deficits Skin shows no rash no cyanosis Results & Data Results & [facility] ([facility]) Vital Signs (Past 12 Hours) Vital Signs Temp Pulse Pulse Resp BP Pulse Ox O2 Del Method 07/10/22 19:40 36.7 C 76 18 102/64 98 Nasal Cannula 07/10/22 15:20 75 07/10/22 11:12 36.5 C 74 18 115/72 98 07/10/22 08:45 Nasal Cannula O2 Flow Rate 07/10/22 19:40 2 07/10/22 15:20 07/10/22 11:12 07/10/22 08:45 2 PG Care Time/CCT Total # of Minutes Spent Total Time Spent with Patient: Total time spent is greater than 50% in coordination of care (as documented) at patient's floor/unit and/or counseling patient: Coding Level of Care Code 58330 Subseq Hosp Care Lvl 2 Diagnoses Hypoxia R09.02 Confusion R41.0 COVID-19 U07.1 Elevated troponin R77.8 Diabetic peripheral neuropathy E11.42 Depression F32.9 Vitamin D deficiency E55.9 Type 2 diabetes mellitus E11.9 Hypertension I10 Hyperlipidemia E78.5
[2022-07-10] MEDS: ASPIRIN 81 MG ECTAB PO SCH (20:21)
[2022-07-11] MEDS: ENOXAPARIN INJ 40 MG/0.4 ML SYR SQ SCH ×2 (06:12→17:37)
[2022-07-11 07:45] LABS: Hematocrit (blood only) 41.5 % (34.1-44.9); Hemoglobin 13.7 g/dl (12.0-16.0); Mean Corpuscular Hemoglobin 28.6 pg (25.0-34.0); Mean Corpuscular Volume 86.6 fL (80.0-100.0); Mean Platelet Volume 10.1 fL (9.4-12.3); Platelet Count 193 K/uL (130-400); RDW Coefficient of Variation 13.2 % (11.5-14.5); RDW Standard Deviation 41.9 fL (36.4-46.3); Red Blood Count 4.79 M/uL (3.93-5.22)
[2022-07-11 08:46] LABS: BUN Creatinine Ratio 32.1 (10-20); Calcium 8.6 mg/dl (8.5-10.1); Creatinine Clr Calc Pharmacy 86.1 ml/min; Est GFR (African American) 89.9 ml/min; Est GFR (Non-African American) 77.6 ml/min; Potassium 3.3 mmol/L (3.5-5.1)
[2022-07-11] MEDS: INSULIN ASPART PER UNIT SC SCH ×4 (09:04→20:13)
[2022-07-11] MEDS: GABAPENTIN 300 MG CAP PO SCH ×3 (09:27→20:53)
[2022-07-11] MEDS: CeleBREX 200 MG CAP PO SCH (09:27)
[2022-07-11] MEDS: LISINOPRIL/HCTZ 20/12.5MG 1 TAB TAB PO SCH (09:27)
[2022-07-11] MEDS: VENLAFAXINE HCL XR 150 MG CAPXR PO SCH (09:27)
[2022-07-11] MEDS: CHOLECALCIFEROL 1,000 UNITS 25 MCG TAB PO SCH (09:27)
[2022-07-11] MEDS: VENLAFAXINE HCL XR 75 MG CAPXR PO SCH (09:27)
[2022-07-11] MEDS: INSULIN HUMAN NPH SC SCH (09:28)
[2022-07-11] MEDS: dexAMETHasone 6 MG in SYRINGE 0 ML IV SCH (09:29)
[2022-07-11] MEDS: REMDESIVIR 100 MG in SODIUM CHLORIDE 0.9% 230 ML IV SCH (12:23)
--- NOTE | 2022-07-11 14:28 | Hospitalist Progress Note ---
Date of Service July 11, 2022 Assessment & Plan (1) Hypoxia: Plan: -Patient had transient episode of hypoxia while being evaluated by ED staff, currently stable on RA -Was given 10 mg IV dex by the ED staff, will continue with 6 mg daily moving forward for a total of 10 days -Will also start Remdesivir today as patient's renal and liver function are stable -Prn O2 ordered to keep SpO2 at or above 95% -Incentive spirometry, fluttery therapy, and prn albuterol ordered -AM CBC, BMP, AST, and ALT (2) Confusion: Plan: -At this time the patient's intermittent confusion is most likely due to current covid infection and possible dehydration -No focal neuro defects on exam, patient is currently alert and oriented x 5, did have a fall and hit her head 2 weeks ago, will get a CT head/brain for complete workup -Will give 1L LR bolus now for hydration (3) COVID-19: Plan: -See hypoxia (4) Elevated troponin: Plan: -First high sensitivity trop elevated at 42.9, patient is asymptomatic and without acute ECG changes -Possibly related to demand ischemia -Will repeat another tropnonin now (5) Diabetic peripheral neuropathy: Plan: -Continue celebrex and gabapentin (6) Depression: Plan: -Continue Venlafaxine (7) Vitamin D deficiency: Plan: -Continue Vit D (8) Type 2 diabetes mellitus: Plan: -Hold metformin and glimepiride, also on Trulicity weekly -Will start with 5 units lantus BID and correction factor of 40 -Patient may need escalated dosing due to dex causing hyperglycemia, continue to monitor (9) Hypertension: Plan: -Continue lisinopril-HCTZ (10) Hyperlipidemia: Plan: -Will hold statin and check CK prior to restarting Plan Admission and Anticipated Discharge Date Admission Date: July 08, 2022 Subjective Slight improvement in shortness of breath No chest pain Physical Exam Physical Exam: Head and ENT no thyroid enlargement trachea midline Cardiovascular S1-S2 are normal no S3 Lungs bilateral air entry decreased at bases Abdomen soft nondistended positive bowel sounds no rebound tenderness Extremity shows trace edema Neurologically no focal deficits Skin shows no rash no cyanosis Results & Data Results & Data ([facility]) Vital Signs (Past 12 Hours) Vital Signs Temp Pulse Pulse Resp BP Pulse Ox Pulse Ox 07/11/22 12:09 36.9 C 72 20 124/74 90 07/11/22 10:21 07/11/22 07:25 65 07/11/22 10:20 91 07/11/22 07:59 36.7 C 70 20 121/71 96 07/11/22 07:29 65 07/11/22 03:27 36.6 C 64 16 110/67 97 O2 Del Method O2 Del Method O2 Flow Rate 07/11/22 12:09 Room Air 07/11/22 10:21 Room Air 07/11/22 07:25 07/11/22 10:20 Room Air 07/11/22 07:59 Nasal Cannula 1 07/11/22 07:29 07/11/22 03:27 Nasal Cannula 2 PG Care Time/CCT Total # of Minutes Spent Total Time Spent with Patient: Total time spent is greater than 50% in coordination of care (as documented) at patient's floor/unit and/or counseling patient: Coding Level of Care Code 30537 Subseq Hosp Care Lvl 2 Diagnoses Hypoxia R09.02 Confusion R41.0 COVID-19 U07.1 Elevated troponin R77.8 Diabetic peripheral neuropathy E11.42 Depression F32.9 Vitamin D deficiency E55.9 Type 2 diabetes mellitus E11.9 Hypertension I10 Hyperlipidemia E78.5
[2022-07-11] MEDS: ASPIRIN 81 MG ECTAB PO SCH (20:53)
[2022-07-12] MEDS: ENOXAPARIN INJ 40 MG/0.4 ML SYR SQ SCH (06:10)
[2022-07-12 08:38] LABS: Hematocrit (blood only) 40.9 % (34.1-44.9); Hemoglobin 13.6 g/dl (12.0-16.0); Mean Corpuscular Hemoglobin 28.4 pg (25.0-34.0); Mean Corpuscular Hgb Conc 33.3 g/dL (32.0-36.0); Mean Corpuscular Volume 85.4 fL (80.0-100.0); Mean Platelet Volume 10.2 fL (9.4-12.3); Platelet Count 187 K/uL (130-400); RDW Coefficient of Variation 13.2 % (11.5-14.5); RDW Standard Deviation 41.2 fL (36.4-46.3); Red Blood Count 4.79 M/uL (3.93-5.22); White Blood Count 6.41 K/ul (4.8-10.8)
[2022-07-12 08:57] LABS: Albumin Globulin Ratio 1.3 (0.9-2); Albumin Level 3.5 gm/dl (3.4-5.0); BUN Creatinine Ratio 28.2 (10-20); Bilirubin,Total 0.4 mg/dl (0.2-1.0); Calcium 8.5 mg/dl (8.5-10.1); Creatinine Clr Calc Pharmacy 94.5 ml/min; Est GFR (African American) 100.7 ml/min; Est GFR (Non-African American) 86.9 ml/min; Globulin 2.6 gm/dl (2.5-4.0); Potassium 3.3 mmol/L (3.5-5.1); Total Protein 6.1 gm/dl (6.0-8.3)
[2022-07-12] MEDS ORDERED: INSULIN HUMAN NPH SC SCH (09:00)
[2022-07-12] MEDS: INSULIN ASPART PER UNIT SC SCH ×2 (09:09→12:12)
[2022-07-12] MEDS: GABAPENTIN 300 MG CAP PO SCH ×2 (09:09→13:52)
[2022-07-12] MEDS: VENLAFAXINE HCL XR 150 MG CAPXR PO SCH (09:09)
[2022-07-12] MEDS: CeleBREX 200 MG CAP PO SCH (09:10)
[2022-07-12] MEDS: VENLAFAXINE HCL XR 75 MG CAPXR PO SCH (09:10)
[2022-07-12] MEDS: CHOLECALCIFEROL 1,000 UNITS 25 MCG TAB PO SCH (09:10)
[2022-07-12] MEDS: LISINOPRIL/HCTZ 20/12.5MG 1 TAB TAB PO SCH (09:10)
[2022-07-12] MEDS: dexAMETHasone 6 MG in SYRINGE 0 ML IV SCH (09:11)
[2022-07-12] MEDS: REMDESIVIR 100 MG in SODIUM CHLORIDE 0.9% 230 ML IV SCH (12:13)
--- NOTE | 2022-07-12 21:17 | Discharge Summary ---
Date of Service July 12, 2022 Admission HPI Per Admitting Provider Princess is a 71 year old female with a PMH significant for HTN, DM II, hyperlipidemia, depression, anxiety, psoriasis, who presented to the [facility] ED on 07/08/22 with a chief complaint of AMS. Per the ED note and chart review, the patient tested positive for covid 19 on 07/06/22. The patient has reportedly had SOB and cough at home with intermittent periods of confusion/fogginess. In the ED the patient was found to be afebrile, hemodynamically stable and initially stable on RA. During her time in the ED she eventually desaturated into the high 80's on RA. Labs were remarkable for normal WBC, VBG showing a pH of 7.50 pCO2 of 36, and pO2 of 52, renal function and electrolytes WNL, troponin of 42.9, CRP of 1.07, and procal < 0.05. Chest xray was negative for acute findings. ECG was without signs of acute ST segment or T-wave changes. Prior to admission the patient was given 10 mg IV dexamethasone. At the time of the exam the patient was resting comfortably in bed in no acute distress with her daughter sitting bedside. The majority of the history was obtained from the patient's daughter due to the patient's confusion. They state that the patient tested positive for covid on 07/06, which is when her symptoms started. She has been experiencing, fever, chills, headache, SOB, and cough. She has also had a poor appetite since her symptoms began. He daughter and some of her other family members also tested positive for covid recently. The patient did have the covid vaccine and booster previously. Over the past few days the patient has been very tired and confused. She states that she has been forgetting to take her medications and just has moments of confusion which then pass; normally she has no confusion and is able to function well. She lives with her grandson but he is not currently at the house this week. She denies any chest pain, nausea, vomiting, diarrhea, dysuria, hematuria. Of note, the patient did fall and hit her head approximately 2 weeks ago, she did not lose consciousness and is not on blood thinners. Patient started on IV remdesivir along with steroids and oxygen supplementation Principal Diagnosis COVID-19 infection Discharge Exam Head and ENT no thyroid enlargement Cardiovascular S1-S2 are normal no S3 Lungs bilateral air entry decreased at bases Abdomen soft nondistended positive bowel sounds Extremity shows trace edema Neurologically no focal deficits Skin shows no cyanosis Discharge Data Allergies Allergy/AdvReac Type Severity Reaction Status Date / Time doxycycline Allergy Severe eye and Verified 07/06/22 10:57 throat swelling nut - unspecified Allergy Intermediate Hives Verified 07/06/22 10:57 Consultations Ordered Studies 07/08/22 13:53 CT head/brain wo con Stat Hospital Course (1) Hypoxia: -Patient had transient episode of hypoxia while being evaluated by ED staff, currently stable on RA -Patient maintained on IV remdesivir along with IV steroids Patient continued on oxygen supplementation along with IV remdesivir daily therapy Patient oxygen requirements improved and on the day of discharge patient had ambulatory oxygen checked and was over 90 and patient has no need for continued oxygen supplementation (2) Confusion: -At this time the patient's intermittent confusion is most likely due to current covid infection and possible dehydration -No focal neuro defects on exam, patient is currently alert and oriented x 5, did have a fall and hit her head 2 weeks ago, will get a CT head/brain for complete workup -Will give 1L LR bolus now for hydration (3) COVID-19: -See hypoxia (4) Elevated troponin: -First high sensitivity trop elevated at 42.9, patient is asymptomatic and without acute ECG changes -Possibly related to demand ischemia -Will repeat another tropnonin now (5) Diabetic peripheral neuropathy: -Continue celebrex and gabapentin (6) Depression: -Continue Venlafaxine (7) Vitamin D deficiency: -Continue Vit D (8) Type 2 diabetes mellitus: -Hold metformin and glimepiride, also on Trulicity weekly -Will start with 5 units lantus BID and correction factor of 40 -Patient may need escalated dosing due to dex causing hyperglycemia, continue to monitor (9) Hypertension: -Continue lisinopril-HCTZ (10) Hyperlipidemia: Continue statin therapy Plan Total Time Total Time Spent Total Time Spent (In Minutes): 45 Discharge Plan Discharge Items Patient Disposition: Home - Self-Care Reason For Visit: AMS Discharge Diagnosis: Covid Infection Activity: Per Instructions section Lifting: Gradually increase as tolerated Non-emergency contact: Primary Care Provider Call non-emergency contact if: you have any medication questions and your symptoms worsen Follow-up/Referrals: Carol Ayoub MD [Primary Care Provider] - 07/22/22 11:00 am Diet: Heart Healthy Addtl Attending Provider Instructions: f/u PCP 3 days Pending Studies at Discharge: No Stand-Alone Forms: My [facility] DAQRI, Smoking Cessation Medications and DC Order Prescriptions: Continued aspirin [Adult Aspirin Regimen] 81 mg tablet,delayed release (DR/EC) 81 mg PO HS (DME) 3-in-1 Commode [facility] [place] See Rx Instructions .Route Qty: 1 0RF Rx Instructions: As directed (DME) Walking Cane [facility] [place] See Rx Instructions .Route Qty: 1 0RF Rx Instructions: As directed calcipotriene 0.005 % cream 1 applic TOP BID Qty: 60 5RF Rx Instructions: rub in gently and completely (DME) blood-glucose meter [OneTouch Verio Meter] [facility] [place] See Rx Instructions .Route Qty: 1 0RF Rx Instructions: test twice daily gabapentin 800 mg tablet 800 mg PO TID Qty: 270 3RF Rx Instructions: TOTAL DOSE 900 MG--TAKE WITH 100 MG CAP. (DME) OneTouch Verio test strips Strip See Rx Instructions .ROUTE .MEDSUPPLY Qty: 100 3RF Rx Instructions: test twice daily metformin 1,000 mg tablet 1,000 mg PO BID Qty: 180 3RF sulfamethoxazole-trimethoprim [Bactrim DS] 800-160 mg tablet 1 tab PO BID 7 Days Qty: 14 0RF venlafaxine 75 mg tablet 75 mg PO QAM Qty: 90 3RF Rx Instructions: take daily with 150mg tablet for total of 225mg. lisinopril-hydrochlorothiazide 20-12.5 mg tablet 1 tab PO QAM Qty: 90 3RF (DME) blood-glucose meter [OneTouch Verio Meter] [facility] [place] See Rx Instructions .Route Qty: 1 0RF Rx Instructions: As directed vitamin B complex Tablet 1 tab PO QAM acetaminophen 500 mg Tablet 1,000 mg PO Q6H PRN (Reason: Pain) cholecalciferol (vitamin D3) [Vitamin D3] 25 mcg (1,000 unit) Tablet 25 mcg PO QAM celecoxib [Celebrex] 200 mg capsule 200 mg PO QAM simvastatin 10 mg tablet 10 mg PO HS venlafaxine 150 mg capsule,extended release 24hr 150 mg PO QAM Rx Instructions: TOTAL DOSE 225 MG--TAKES WITH 75 MG CAP. lorazepam [Ativan] 0.5 mg tablet 0.5 mg PO UD PRN (Reason: anxiety) glimepiride 4 mg tablet 4 mg PO QAM gabapentin 100 mg capsule 100 mg PO TID Rx Instructions: TAKE 1 CAPSULE BY MOUTH 3 TIMES A DAY. TAKE WITH 800 MG TABS FOR TOTAL 900 MG EACH DOSE. nystatin 100,000 unit/gram powder 1 applic topical UD PRN (Reason: Rash) Rx Instructions: 1 APPLN TOPICALLY TWICE DAILY FOR 2 WEEKS TO AFFECTED AREAS epinephrine 0.3 mg/0.3 mL auto-injector 0.3 ml IM UD PRN (Reason: Nut Allergy) Trulicity 1.5 mg/0.5 mL pen injector 1.5 mg SQ Q7D Rx Instructions: Discharge Orders: Discharge Order (Routine); Ordered 07/12/22 Ordered By: Kristofer Krishnamurthy Admission Data Admit Date/Time: 07/08/22 13:25 Attending Provider: Kristofer Krishnamurthy Admit Provider: Timi Robbins Primary Care Provider: Carol Ayoub Other Providers: Timi Robbins Other Interventions: Discharge Summary Assessment (RN) Last Done: 07/12/22 14:22 Coding Level of Care Code D/C DAY MANAGEMENT >30 MINS Diagnoses Hypoxia R09.02 Confusion R41.0 COVID-19 U07.1 Elevated troponin R77.8 Diabetic peripheral neuropathy E11.42 Depression F32.9 Vitamin D deficiency E55.9 Type 2 diabetes mellitus E11.9 Hypertension I10 Hyperlipidemia E78.5
== END 2022-07-12 15:20 | disposition home or self-care (01) | DRG 178 ==
LOC: ED 11:08 → SUATTDRO 13:25 → 2W 13:25